=== PATIENT | female | born 1960 | race Hispanic/Latino ===

== ENCOUNTER 2017-09-14 13:25 | Inpatient (IN) | payer MEDICAID ==
--- NOTE | 2017-09-14 14:24 | ED PDOC ---
Arrival/HPI - General Chief Complaint: Weakness/Neurological Deficit Time Seen by Provider: 09/14/17 14:11 Historian: Patient - History of Present Illness Narrative History of Present Illness (Text): 09/14/17 14:24 A 57 year old female presents to the emergency department complaining of sudden onset of generalized weakness since yesterday. Patient notes associated nausea, headache and malaise/easily fatigued; poor appetite. Of note patient reports left great toe swelling and progressively worsening pain today/this morning. Patient has a history of diabetic ulcers to same region and became concerned causing her to come to the emergency room for further evaluation. pt noted sudden left great toe redness/swelling and streaking of redness up to her left foot/ankle; movement/walking causes severe left foot/toe pain; Patient denies any recent trauma/fall/travel, sick contact, subjective fevers, chills, sweats, vomiting, abdominal pain, urinary/bladder changes, chest pain, shortness of breath or any other complaints. pt denied LOC pt is here for further eval PCP: Sol ledezma Time/Duration: < week (1-2 days) Symptom Onset: Sudden Symptom Course: Worsening Activities at Onset: Rest Context: Home Past Medical History - Provider Review Nursing Documentation Reviewed: Yes - Travel History Have you recently traveled outside [place] w/in the past 3 mons?: No - Past History Past History: Non-Contributing - Infectious Disease Hx of Infectious Diseases: None - Tetanus Immunization Tetanus Immunization: Unknown - Reproductive Menopause: Yes Currently : No - Cardiac Hx Cardiac Disorders: No Hx Angina: No Hx Cardiac Arrhythmia: No Hx Circulatory Problems: No Hx Congestive Heart Failure: No Hx Heart Murmur: No Hx Heart Transplant: No Hx Hypertension: No Hx Internal Defibrillator: No Hx Mitral Valve Prolapse: No Hx Pacemaker: No Hx Peripheral Edema: No Hx Peripheral Vascular Disease: No - Pulmonary Hx Respiratory Disorders: No Hx Asthma: No Hx Bronchitis: No Hx Chronic Obstructive Pulmonary Disease (COPD): No Hx Emphysema: No Hx Pneumonia: No Hx Respiratory Aspiration: No Hx Respiratory Tract Infection: No Hx Sleep Apnea: No Hx Tuberculosis: No - Neurological Hx Neurological Disorder: No Hx Alzheimer's Disease: No HX Cerebrovascular Accident: No Hx Dementia: No Hx Dizziness: No Hx Meningitis: No Hx Migraine: No Hx Parkinson's Disease: No Hx Seizures: No Hx Transient Ischemic Attacks (TIA): No - HEENT Hx HEENT Disorder: No Hx Blind: No Hx Cataracts: No Hx Deafness: No Hx Difficulty Chewing: No Hx Epistaxis: No Hx Glaucoma: No Hx Macular Degeneration: No - Renal Hx Renal Disorder: No Hx Dialysis: No Hx Kidney Stones: No Hx Neurogenic Bladder: No Hx Pyelonephritis: No Hx Renal Cancer: No Hx Renal Failure: No - Endocrine/Metabolic Hx Endocrine Disorders: Yes Hx Adrenal Cancer: No Hx Diabetes Insipidus: No Hx Diabetes Mellitus Type 1: Yes Hx Diabetes Mellitus Type 2: No Hx Hyperthyroidism: No Hx Hypothyroidism: No Hx Systemic Lupus Erythematosus: No - Hematological/Oncological Hx Blood Disorders: No Hx AIDS: No Hx Anemia: No Hx Cancer: No Hx Chemotherapy: No Hx Cirrhosis: No Hx Hemophilia: No Hx Hepatitis A: No Hx Hepatitis B: No Hx Hepatitis C: No Hx Metastasis: No Hx Shingles: No Hx Sickle Cell Disease: No Hx Unexplained Bleeding: No - Integumentary Hx Dermatological Disorder: No Hx Basal Cell Carcinoma: No Hx Eczema: No Hx Melanoma: No Hx Psoriasis: No Hx Squamous Cell Carcinoma: No - Musculoskeletal/Rheumatological Hx Musculoskeletal Disorders: No Hx Arthritis: No Hx Back Pain: No Hx Degenerative Joint Disease: No Hx Falls: No Hx Fractures: No Hx Gout: No Hx Herniated Disk: No Hx Myasthenia Gravis: No Hx Osteoarthritis: No Hx Osteomyelitis: No Hx Osteoporosis: No Hx Rhabdomyolysis: No Hx Spinal Stenosis: No Hx Unsteady Gait: No - Gastrointestinal Hx Gastrointestinal Disorders: No Hx Colostomy: No Hx Crohn's Disease: No Hx Diverticulitis: No Hx Gall Bladder Disease: No Hx Gastroesophageal Reflux: No Hx Gastrointestinal Ulcer: No Hx Ileostomy: No Hx Liver Failure: No Hx Pancreatitis: No HX Swallowing Problems: No - Genitourinary/Gynecological Hx Genitourinary Disorders: No Hx Hematuria: No Hx Incontinence: No Hx Prostate Problems: No Hx Sexually Transmitted Diseases: No Hx Urinary Tract Infection: No - Psychiatric Hx Psychophysiologic Disorder: No Hx Anxiety: No Hx Bipolar Disorder: No Hx Depression: No Hx Emotional Abuse: No Hx Hallucinations: No Hx Panic Disorder: No Hx Paranoia: No Hx Post Traumatic Stress Disorder: No Hx Psychosis: No Hx Physical Abuse: No Hx Schizophrenia: No Hx Sexual Abuse: No Hx Substance Use: No - Surgical History Hx Amputation: No Hx Appendectomy: No Hx Cardiac Catheterization: No Hx Cholecystectomy: No Hx Coronary Stent: No Hx Gastric Bypass Surgery: No Hx Hysterectomy: No Hx Inguinal Hernia Repair: No Hx Joint Replacement: No Hx Kidney Transplant: No Hx Liver Transplant: No Hx Mastectomy: No Hx Musculoskeletal Surgery: No Hx Open Heart Surgery: No Hx Orthopedic Surgery: No Hx Splenectomy: No Hx Valve Replacement: No - Suicidal Assessment Feels Threatened In Home Enviroment: No Family/Social History - Physician Review Nursing Documentation Reviewed: Yes Family/Social History: No Known Family HX Smoking Status: Current Some Days Smoker Hx Alcohol Use: No Hx Substance Use: No Hx Substance Use Treatment: No Allergies/Home Meds Allergies/Adverse Reactions: Allergies No Known Allergies Allergy (Verified 12/04/13 20:47) Review of Systems - Physician Review All systems were reviewed & negative as marked: Yes - Review of Systems Constitutional: Fatigue, Other (Generalized weakness, Malaise). absent: Fevers , Night Sweats Eyes: Normal ENT: Normal Respiratory: absent: SOB Cardiovascular: absent: Chest Pain Gastrointestinal: Nausea. absent: Abdominal Pain, Vomiting Genitourinary Female: absent: Urine Output Changes Musculoskeletal: Other (Left great toe swelling and pain) Skin: Cellulitis Neurological: Headache, Dizziness Endocrine: Normal Hemo/Lymphatic: Normal Psychiatric: Normal Physical Exam - Physical Exam Narrative Physical Exam (Text): 09/14/17 14:25 General: alert/awake, GCS = 15, oriented x 3, resting in bed, uncomfortable, cooperative, interactive; NAD Head: NC/AT EYE: PERRLA, EOMI, sclera anicteric, no nystagmus, no photophobia; visual field intact b/l Facial: WNL Oral: uvula/tongue are midline, no exudate/lesions, no drooling/stridor, no dysphonia; intact dentitions; mild dry oral mucosa NECK: intact ROM, no midline tenderness, no nuchal rigidity, no meningeal signs ; no step off Chest: CTA b/l, no w/r/r; no tachypenia, no accessory muscle use noted Cardiac: +S1, +S2, no m/r/r, no tachycardia Abdominal: +BS, soft/nd/nt, well nourished patient; no masses/rebound/guarding/ rigidity; no montoya's sign, no mcburney's point tenderness Extremities: intact ROM, strength 5/5 grossly intact in all limbs, neurovasc intact b/l; + ambulatory; reflex +2/2; no pitting edema noted b/l; no Daron's sign b/l; left great toe swelling/pain are noted on exam with swelling/redness spreading proximally to her left inner ankle region; + concern of left great toe (plantar region) fluctuance/toe tenderness noted on exam; no expressible discharge/bleeding are noted on exam; no gross deformities noted; no open sores/ lesions noted BACK: no step off, no midline tenderness, NO crepitus, no gross deformities noted; Intact ROM SKIN: cap refill < 1 sec, no ulcerations, no petechiae, no rashes; as described above extremities section; NO NIKOSKY's sign noted NEURO: CNII-XII WNL, no facial asymmetries, no slurr speech, oriented x 3 NIH stroke scale ~ 0 Psych: normal insight, normal affect; follows command with ease Vital Signs Reviewed: Yes Vital Signs Temp Pulse Resp BP Pulse Ox 09/14/17 15:45 75 18 139/84 98 09/14/17 14:08 98.4 F 81 18 160/90 H 98 Temperature: Afebrile Blood Pressure: Hypertensive Pulse: Regular Respiratory Rate: Normal Appearance: Positive for: Well-Appearing, Non-Toxic, Uncomfortable. No: Ill- Appearing, Unkept Pain Distress: None Mental Status: Positive for: Alert and Oriented X 3 Finger Stick Blood Glucose: 195 - Systems Exam Head: Present: Atraumatic, Normocephalic Medical Decision Making ED Course and Treatment: 09/14/17 14:24 Impression: A 57 year old female with sudden generalized weakness, malaise, nausea and headache. Patient also reports left great toe swelling and pain. left foot cellulitis with left great toe abscess r/o osteo/FB Plan: -- Left foot xray -- EKG -- Labs -- Blood culture -- Urinalysis -- IV fluids, Boostrix, Vancomycin and Zosyn -- Reassess and disposition Progress Notes: pt is resting comfortably in bed pt is awaiting diagnostic/lab results 09/14/17 15:24 Case discussed with podiatry resident supervisor liquefaction, who is agreeable with emergency department management/txt plan and will evaluate patient in the morning. 1600 given pt's complaints and lab results and diagnostic finds, will recommend patient for admission/wound care/IV abx pt is made aware of her medical results agrees with admission 1620 I spoke to Hospitalists supervisor liquefaction, made aware, agrees with admission Re-evaluation Time: 16:30 Reassessment Condition: Improving,but remains with symptoms - Lab Interpretations Lab Results: 09/14/17 14:45 09/14/17 14:45 Lab Results 09/14/17 15:15: pO2 19 L, VBG pH 7.37, VBG pCO2 52.0, VBG HCO3 30.1 H, VBG Total CO2 31.7 H, VBG O2 Sat (Calc) 33.1 L, VBG Base Excess 3.6 H, VBG Potassium 4.0, Glucose 214 H, Lactate 1.2, FiO2 21.0, Sodium 136.0, Chloride 101.0, Venous Blood Potassium 4.0 09/14/17 14:45: Serum Osmolality 286, C-React Prot High Sens Pending 09/14/17 14:45: Sodium 139, Potassium 3.8, Chloride 99, Carbon Dioxide 27, Anion Gap 17, BUN 10, Creatinine 0.8, Est GFR ( Amer) > 60, Est GFR (Non- Af Amer) > 60, Random Glucose 199 H, Calcium 10.0, Phosphorus 3.6, Magnesium 1.5 L, Total Bilirubin 0.8, AST 25, ALT 30, Alkaline Phosphatase 103, Troponin I < 0.01, Total Protein 8.2, Albumin 4.6, Globulin 3.5, Albumin/Globulin Ratio 1.3 09/14/17 14:45: PT 12.0, INR 1.05, APTT 27.8 09/14/17 14:45: WBC 13.5 H D, RBC 4.70, Hgb 14.3, Hct 41.2, MCV 87.7, MCH 30.4, MCHC 34.7, RDW 12.5, Plt Count 335, MPV 9.5, Gran % 86.3 H, Lymph % (Auto) 7.7 L , [place] % (Auto) 5.8, Eos % (Auto) 0.1 L, Baso % (Auto) 0.1, Gran # 11.60 H, Lymph # (Auto) 1.0 L, [place] # (Auto) 0.8 H, Eos # (Auto) 0.0, Baso # (Auto) 0.02 , ESR Pending I have reviewed the lab results: Yes Interpretation: Abnormal lab values (elevated WBCs/gluc) - RAD Interpretation Narrative RAD Interpretations (Text): 09/14/17 16:19 PROCEDURE: Left Foot Radiographs. HISTORY: left great toe infection COMPARISON: None. FINDINGS: BONES: No radiographic manifestations of osteomyelitis. JOINTS: Minor hallux valgus deformity. SOFT TISSUES: Deep soft tissue ulcer plantar aspect of the 1st digit. OTHER FINDINGS: None. IMPRESSION: Soft tissue swelling, ulcer 1st digit. No radiographic manifestations of acute osteomyelitis. Radiology Orders: 09/14/17 14:33 FOOT LEFT 3 VIEWS ROUTINE [RAD] Stat Credit Historian: Radiologist - EKG Interpretation EKG Interpretation (Text): 09/14/17 16:19 NSR at 90 bpm, normal axis, no ectopy, + poor baseline, inverted T in leads V2-3 , qs in leads V1-2, non-specific st changes, ABNL EKG; no old ekg to compare with Interpreted by ED Physician: Yes Type: 12 lead EKG Comparison: No previous EKG avail. - Medication Orders Current Medication Orders: Discontinued Medications Sodium Chloride (Sodium Chloride 0.9%) 500 mls @ 999 mls/hr IV .Q31M STA Stop: 09/14/17 15:03 Last Admin: 09/14/17 15:26 Dose: 999 mls/hr eMAR Start Stop Document 09/14/17 15:26 JOSEA (Rec: 09/14/17 15:27 [facility] [id number]) Intravenous Solution Start Date 09/14/17 Start Time 15:26 End Date 09/14/17 End time 16:00 Total Infusion Time 34 Vancomycin HCl (Vancomycin 1gm) 1 gm in 250 mls @ 167 mls/hr IVPB STAT STA PRN Reason: Protocol Stop: 09/14/17 16:00 Last Admin: 09/14/17 16:00 Dose: 167 mls/hr eMAR Start Stop Document 09/14/17 16:00 SZA (Rec: 09/14/17 16:20 [facility] [id number]) Intravenous Solution Start Date 09/14/17 Start Time 16:00 End Date 09/14/17 End time 17:30 Total Infusion Time 90 Piperacillin Sod/Tazobactam Sod (Zosyn 4.5 Gm In Ns 100ml) 4.5 gm in 100 mls @ 200 mls/hr IVPB STAT STA PRN Reason: Protocol Stop: 09/14/17 15:00 Last Admin: 09/14/17 15:24 Dose: 200 mls/hr eMAR Start Stop Document 09/14/17 15:24 SZA (Rec: 09/14/17 15:24 SZA [id number]) Intravenous Solution Start Date 09/14/17 Start Time 15:24 End Date 09/14/17 End time 16:00 Total Infusion Time 36 Tetanus/Reduced Diphtheria/Acell Pertussis (Boostrix Vaccine Inj) 0.5 ml IM .ONCE ONE Stop: 09/14/17 14:33 Last Admin: 09/14/17 15:24 Dose: 0.5 ml Immunization Registry Document 09/14/17 15:24 SZA (Rec: 09/14/17 15:24 SZA [id number]) Immunization Registry Consent Date 09/14/17 - Scribe Statement The provider has reviewed the documentation as recorded by the Linda Rangel Provider Scribe Attestation: All medical record entries made by the Scribe were at my direction and personally dictated by me. I have reviewed the chart and agree that the record accurately reflects my personal performance of the history, physical exam, medical decision making, and the department course for this patient. I have also personally directed, reviewed, and agree with the discharge instructions and disposition. Disposition/Present on Arrival - Present on Arrival Any Indicators Present on Arrival: No History of DVT/PE: No History of Uncontrolled Diabetes: Yes Urinary Catheter: No History of Decub. Ulcer: No History Surgical Site Infection Following: None - Disposition Have Diagnosis and Disposition been Completed?: Yes Diagnosis: Cellulitis of foot, left, Toe abscess, Uncontrolled diabetes mellitus Disposition: HOSPITALIZED Disposition Time: 16:15 Patient Plan: Admission Patient Problems: Current Active Problems Problem Status Onset Cellulitis of foot, left Acute Toe abscess Acute Uncontrolled diabetes mellitus Acute Condition: STABLE Print Language: SAMI Forms: MADS (Telugu)
[2017-09-14 14:31] VITALS: BMI 25.0
[2017-09-14] MEDS ORDERED: Piperacill/Tazo 4.5gm in NS 4.5 GM/100 ML BAG IVPB STA (14:31)
[2017-09-14] MEDS ORDERED: Vancomycin 1gm in NS 250ml 1 GM/250 ML BAG IVPB STA (14:31)
[2017-09-14] MEDS ORDERED: TDAP Vaccine 0.5 mL Syr IM ONE (14:32)
[2017-09-14] MEDS ORDERED: Sodium Chloride 0.9% 500 ML IV STA (14:33)
[2017-09-14 15:45] LABS: VENOUS BLOOD GAS BASE EXCESS 3.6 mmol/L (0.0-2.0); VENOUS BLOOD GAS PO2 19 mm/Hg (30-55); VENOUS BLOOD PH 7.37 (7.32-7.43)
[2017-09-14 15:45] LABS: BASO # 0.02 K/mm3 (0.0-2.0); BASO % 0.1 % (0.0-3.0); EOS % 0.1 % (1.5-5.0); GRAN # 11.6 (1.4-6.5); GRAN % 86.3 % (50.0-68.0); HEMOGLOBIN 14.3 g/dL (12.0-16.0); LYMPH % 7.7 % (22.0-35.0); MEAN CELL VOLUME 87.7 fl (80.0-105.0); MEAN CORPUSCULAR HEMOGLOBIN 30.4 pg (25.0-35.0); MEAN CORPUSCULAR HGB CONC 34.7 g/dl (31.0-37.0); MEAN PLATELET VOLUME 9.5 fl (7.0-11.0); MONO # 0.8 (0.1-0.6); MONO % 5.8 % (1.0-6.0); RBC 4.7 10^6/uL (3.5-6.1); RED CELL DISTRIBUTION WIDTH 12.5 % (11.5-14.5); WHITE BLOOD COUNT 13.5 10^3/ul (4.5-11.0)
[2017-09-14 15:51] LABS: INR 1.05 (0.93-1.08); PARTIAL THROMBOPLASTIN TIME 27.8 Seconds (25.1-36.5)
[2017-09-14 16:01] LABS: ALB/GLOB RATIO 1.3 (1.1-1.8); ALBUMIN 4.6 g/dL (3.0-4.8); ALT/SGPT 30 U/L (7-56); AST/SGOT 25 U/L (14-36); BLOOD UREA NITROGEN 10 mg/dL (7-21); GFR AFRICAN-AMERICAN > 60; GFR NON-AFRICAN AMERICAN > 60
[2017-09-14 16:11] LABS: TROPONIN I < 0.01 ng/mL
--- NOTE | 2017-09-14 16:18 | RAD ---
PROCEDURE: Left Foot Radiographs. HISTORY: left great toe infection COMPARISON: None. FINDINGS: BONES: No radiographic manifestations of osteomyelitis. JOINTS: Minor hallux valgus deformity. SOFT TISSUES: Deep soft tissue ulcer plantar aspect of the 1st digit. OTHER FINDINGS: None. IMPRESSION: Soft tissue swelling, ulcer 1st digit. No radiographic manifestations of acute osteomyelitis.
[2017-09-14 16:40] LABS: OSMOLALITY,SERUM 286 mosm/kg (272-300)
[2017-09-14] MEDS ORDERED: Vancomycin 1gm in NS 250ml 1 GM/250 ML BAG IVPB SCH ×2 (17:00→17:02)
--- NOTE | 2017-09-14 17:07 | CP.PCM.HP ---
<Farideh Anders - Last Filed: 09/14/17 17:56> History of Present Illness - History of Present Illness History of Present Illness: PGY-2 H&P for Hospitalist service 57 year old female with PMH of DM presented to the emergency department complaining of toe swelling of the right great toe. Patient states that 2 days ago she noticed her toe swelling and becoming tender. Patient states that this morning she had sudden onset of generalized weakness. Patient also reports associated nausea, headache and malaise. Patient states that she has a history of diabetic ulcers to same region adn has had an ulcer there for the past 3-4 months. She has previously seen a defensive line coach for the ulcer but has not seen any one for the past few months. She states that she was not on any antibiotic recently. She noted left great toe redness,swelling with severe pain with movement left foot and toe. Patient denies any recent trauma, falls, or travel. No recent sick contact. She denies fevers, sweats, vomiting, abdominal pain, urinary symptoms, chest pain, shortness of breath or any other complaints. PMH: diabetes PSH: cholecystitis social history: smokes 15-16 cigarettes per day, social alcohol use, denies illicit drug use family history: father heart disease allergy: NKDA Present on Admission - Present on Admission Any Indicators Present on Admission: No Review of Systems - Review of Systems All systems: reviewed and no additional remarkable complaints except Past Patient History - Infectious Disease Hx of Infectious Diseases: None - Tetanus Immunizations Tetanus Immunization: Unknown - Past Social History Smoking Status: Current Some Days Smoker - CARDIAC Hx Cardiac Disorders: No Hx Angina: No Hx Cardia Arrhythmia: No Hx Circulatory Problems: No Hx Congestive Heart Failure: No Hx Heart Murmur: No Hx Heart Transplant: No Hx Hypertension: No Hx Internal Defibrillator: No Hx Mitral Valve Prolapse: No Hx Pacemaker: No Hx Peripheral Edema: No Hx Peripheral Vascular Disease: No - PULMONARY Hx Respiratory Disorders: No Hx Asthma: No Hx Bronchitis: No Hx Chronic Obstructive Pulmonary Disease (COPD): No Hx Emphysema: No Hx Pneumonia: No Hx Respiratory Aspiration: No Hx Respiratory Tract Infection: No Hx Sleep Apnea: No Hx Tuberculosis: No - NEUROLOGICAL Hx Neurological Disorder: No Hx Alzheimer's Disease: No HX Cerebrovascular Accident: No Hx Dementia: No Hx Dizziness: No Hx Meningitis: No Hx Migraine: No Hx Parkinson's Disease: No Hx Seizures: No Hx Transient Ischemic Attacks (TIA): No - HEENT Hx HEENT Problems: No Hx Blind: No Hx Cataracts: No Hx Deafness: No Hx Difficulty Chewing: No Hx Epistaxis: No Hx Glaucoma: No Hx Macular Degeneration: No - RENAL Hx Chronic Kidney Disease: No Hx Dialysis: No Hx Kidney Stones: No Hx Neurogenic Bladder: No Hx Pyelonephritis: No Hx Renal (Kidney) Cancer: No Hx Renal Failure: No - ENDOCRINE/METABOLIC Hx Endocrine Disorders: Yes Hx Adrenal Cancer: No Hx Diabetes Insipidus: No Hx Diabetes Mellitus Type 1: Yes Hx Diabetes Mellitus Type 2: No Hx Hyperthyroidism: No Hx Hypothyroidism: No Hx Systemic Lupus Erythematosus: No - HEMATOLOGICAL/ONCOLOGICAL Hx Blood Disorders: No Hx AIDS: No Hx Anemia: No Hx Cancer: No Hx Chemotherapy: No Hx Cirrhosis: No Hx Hemophilia: No Hx Hepatitis A: No Hx Hepatitis B: No Hx Hepatitis C: No Hx Metastesis: No Hx Shingles: No Hx Sickle Cell Disease: No Hx Unexplained Bleeding: No - INTEGUMENTARY Hx Dermatological Problems: No Hx Basil Cell: No Hx Eczema: No Hx Melanoma: No Hx Psoriasis: No Hx Squamous Cell: No - MUSCULOSKELETAL/RHEUMATOLOGICAL Hx Musculoskeletal Disorders: No Hx Arthritis: No Hx Back Pain: No Hx Degenerative Joint Disease: No Hx Falls: No Hx Fractures: No Hx Gout: No Hx Herniated Disk: No Hx Myasthenia Gravis: No Hx Osteoarthritis: No Hx Osteomyelitis: No Hx Osteoporosis: No Hx Rhabdomyolysis: No Hx Spinal Stenosis: No Hx Unsteady Gait: No - GASTROINTESTINAL Hx Gastrointestinal Disorders: No Hx Colostomy: No Hx Crohn's Disease: No Hx Diverticulitis: No Hx Gall Bladder Disease: No Hx Gastroesophageal Reflux: No Hx Ileostomy: No Hx Liver Failure: No Hx Pancreatitis: No HX Swallowing Problems: No - GENITOURINARY/GYNECOLOGICAL Hx Genitourinary Disorders: No Hx Hematuria: No Hx Incontinence: No Hx Sexually Transmitted Disorders: No Hx Urinary Tract Infection: No - PSYCHIATRIC Hx Psychophysiologic Disorder: No Hx Anxiety: No Hx Bipolar Disorder: No Hx Depression: No Hx Emotional Abuse: No Hx Hallucinations: No Hx Panic Symptoms: No Hx Paranoia: No Hx Post Traumatic Stress Disorder: No Hx Psychosis: No Hx Physical Abuse: No Hx Schizophrenia: No Hx Sexual Abuse: No Hx Substance Use: No - SURGICAL HISTORY Hx Amputation: No Hx Appendectomy: No Hx Cardiac Catheterization: No Hx Cholecystectomy: No Hx Coronary Stent: No Hx Gastric Bypass Surgery: No Hx Hysterectomy: No Hx Joint Replacement: No Hx Kidney Transplant: No Hx Liver Transplant: No Hx Mastectomy: No Hx Musculoskeletal Surgery: No Hx Open Heart Surgery: No Hx Orthopedic Surgery: No Hx Splenectomy: No Hx Valve Replacement: No Meds Allergies/Adverse Reactions: Allergies Allergy/AdvReac Type Severity Reaction Status Date / Time No Known Allergies Allergy Verified 12/04/13 20:47 Physical Exam - Constitutional Appears: No Acute Distress - Head Exam Head Exam: ATRAUMATIC, NORMAL INSPECTION, NORMOCEPHALIC - Eye Exam Eye Exam: EOMI, Normal appearance - ENT Exam ENT Exam: Mucous Membranes Moist - Respiratory Exam Respiratory Exam: Clear to Auscultation Bilateral, NORMAL BREATHING PATTERN. absent: Rales, Rhonchi, Wheezes, Respiratory Distress, Stridor - Cardiovascular Exam Cardiovascular Exam: REGULAR RHYTHM, +S1, +S2. absent: Bradycardia, Tachycardia , Diastolic murmur, Systolic Murmur - GI/Abdominal Exam GI & Abdominal Exam: Soft. absent: Distended, Firm, Guarding - Extremities Exam Additional comments: ulcer left first toe, erythema of surrounding area radiating up dorsal aspect of her foot, swelling, tenderness - Back Exam Back exam: NORMAL INSPECTION - Neurological Exam Neurological exam: Alert, Oriented x3 - Psychiatric Exam Psychiatric exam: Normal Affect, Normal Mood - Skin Skin Exam: Dry, Warm Results - Vital Signs Recent Vital Signs: Last Vital Signs Temp 98.4 F 09/14/17 14:08 Pulse 75 09/14/17 15:45 Resp 18 09/14/17 15:45 BP 139/84 09/14/17 15:45 Pulse Ox 98 09/14/17 15:45 - Labs Result Diagrams: 09/14/17 14:45 09/14/17 14:45 Assessment & Plan - Assessment and Plan (Free Text) Assessment: 57 year old female with PMH of DM presented to the emergency department with foot ulcer of left 1st digit. Plan: ulcer of the left great toes with possible cellulititis - most like diabetic foot ulcer - foot xray showed soft tissue swelling, ulcer 1st digit, no manifestations of acute osteomyelitis - afebrile, with mild elevation of leukocytes - received vancomycin in ED, will continue - start zosyn - podiatry consulted - ID consulted - consider MRI of foot to r/o osteomylitis - lactic acid within normal limits, 1.2 - CRP, blood culures - zofran PRN for nausea diabetes - will order Hgba1c, lipid panel - ISS- med - fingers ticks ACHS - continue home alogliptin and metformin h/o tabacco use - will start nicotine patch tomorrow per patients request - discussed smoking cessation GI ppx- pepcid DVT ppx- lovenox <Azalea Valenzuela - Last Filed: 09/15/17 13:30> Results - Vital Signs Recent Vital Signs: Last Vital Signs Temp 98.5 F 09/15/17 07:47 Pulse 85 09/15/17 07:47 Resp 20 09/15/17 07:47 BP 136/88 09/15/17 07:47 Pulse Ox 98 09/15/17 07:47 - Labs Result Diagrams: 09/15/17 06:30 09/15/17 06:30 Labs: Laboratory Results - last 24 hr 09/14/17 09/14/17 09/15/17 19:00 21:43 06:24 WBC RBC Hgb Hct MCV MCH MCHC RDW Plt Count MPV Gran % Lymph % (Auto) [place] % (Auto) Eos % (Auto) Baso % (Auto) Gran # Lymph # (Auto) [place] # (Auto) Eos # (Auto) Baso # (Auto) ESR Sodium Potassium Chloride Carbon Dioxide Anion Gap BUN Creatinine Est GFR ( Amer) Est GFR (Non-Af Amer) POC Glucose (mg/dL) 185 H 171 H Random Glucose Calcium Total Bilirubin AST ALT Alkaline Phosphatase C-Reactive Protein Total Protein Albumin Globulin Albumin/Globulin Ratio Triglycerides Cholesterol LDL Cholesterol Direct HDL Cholesterol Influenza Typ A,B (EIA) Negative for flu a/b 09/15/17 09/15/17 09/15/17 06:30 06:30 11:37 WBC 9.1 D RBC 4.40 Hgb 13.1 Hct 38.4 MCV 87.3 MCH 29.8 MCHC 34.1 RDW 12.5 Plt Count 312 MPV 9.5 Gran % 75.9 H Lymph % (Auto) 14.5 L [place] % (Auto) 8.8 H Eos % (Auto) 0.5 L Baso % (Auto) 0.3 Gran # 6.93 H Lymph # (Auto) 1.3 [place] # (Auto) 0.8 H Eos # (Auto) 0.1 Baso # (Auto) 0.03 ESR 55 H Sodium 138 Potassium 4.2 Chloride 105 Carbon Dioxide 21 Anion Gap 17 BUN 8 Creatinine 0.7 Est GFR ( Amer) > 60 Est GFR (Non-Af Amer) > 60 POC Glucose (mg/dL) 182 H Random Glucose 182 H Calcium 8.8 Total Bilirubin 0.7 AST 53 H D ALT 41 Alkaline Phosphatase 110 C-Reactive Protein 133.30 H Total Protein 7.0 Albumin 3.9 Globulin 3.0 Albumin/Globulin Ratio 1.3 Triglycerides 165 H Cholesterol 182 LDL Cholesterol Direct 90 HDL Cholesterol 45 Influenza Typ A,B (EIA) Attending/Attestation - Attestation I have personally seen and examined this patient.: Yes I have fully participated in the care of the patient.: Yes I have reviewed all pertinent clinical information: Yes Notes (Text): 09/15/17 13:28 Attending note; Patient seen and examined with resident. Patient is a 57 year old female with PMH of DM presented to the emergency department with foot ulcer of left 1st digit. Patient had nonhealing ulcer on the left big toe for the past few months. Not treated with antibiotics. Currently with significant swelling and streaking. Started on IV vancomycin and Zosyn. Diabetes; continue cough-controlled diet. Continue metformin and Alogliptin. Podiatry evaluation requested. MRI of the foot ordered. Upon discharge patient will follow-up with PMD Dr. Martin. 09/15/17 13:29
[2017-09-14] MEDS ORDERED: Magnesium 2 gm/50 ml NS 2 GM/50 ML BAG IVPB ONE (17:59)
--- NOTE | 2017-09-14 21:15 | CARD ---
APPROVED REPORT EKG Measurement Heart [id number] MD [id number] <Conclusion> Normal sinus rhythm Low voltage QRS Septal infarct, age undetermined Abnormal ECG
[2017-09-14] MEDS: Insulin Reg-MEDIUM-Coverage SC SCH (21:50)
[2017-09-14] MEDS: Piperacill/Tazo 4.5gm in NS 4.5 GM/100 ML BAG IVPB SCH (23:20)
[2017-09-15] MEDS: Piperacill/Tazo 4.5gm in NS 4.5 GM/100 ML BAG IVPB SCH ×4 (05:45→23:01)
[2017-09-15 07:45] LABS: BASO # 0.03 K/mm3 (0.0-2.0); BASO % 0.3 % (0.0-3.0); EOS # 0.1 (0.0-0.7); EOS % 0.5 % (1.5-5.0); GRAN # 6.93 (1.4-6.5); GRAN % 75.9 % (50.0-68.0); HEMOGLOBIN 13.1 g/dL (12.0-16.0); LYMPH # 1.3 (1.2-3.4); LYMPH % 14.5 % (22.0-35.0); MEAN CELL VOLUME 87.3 fl (80.0-105.0); MEAN CORPUSCULAR HEMOGLOBIN 29.8 pg (25.0-35.0); MEAN CORPUSCULAR HGB CONC 34.1 g/dl (31.0-37.0); MEAN PLATELET VOLUME 9.5 fl (7.0-11.0); MONO # 0.8 (0.1-0.6); MONO % 8.8 % (1.0-6.0); RBC 4.4 10^6/uL (3.5-6.1); RED CELL DISTRIBUTION WIDTH 12.5 % (11.5-14.5); WHITE BLOOD COUNT 9.1 10^3/ul (4.5-11.0)
[2017-09-15] MEDS: Insulin Reg-MEDIUM-Coverage SC SCH ×4 (07:52→21:27)
[2017-09-15 09:36] LABS: ALB/GLOB RATIO 1.3 (1.1-1.8); ALBUMIN 3.9 g/dL (3.0-4.8); ALT/SGPT 41 U/L (7-56); AST/SGOT 53 U/L (14-36); BLOOD UREA NITROGEN 8 mg/dL (7-21); CALCIUM 8.8 mg/dL (8.4-10.5); GFR AFRICAN-AMERICAN > 60; GFR NON-AFRICAN AMERICAN > 60; HDL CHOLESTEROL 45 mg/dL (29-60)
[2017-09-15 09:47] LABS: LDL CHOLESTEROL 90 mg/dL (0-129)
[2017-09-15] MEDS: Enoxaparin 40 mg Syringe SC SCH (09:47)
[2017-09-15] MEDS: Vancomycin 1gm in NS 250ml 1 GM/250 ML BAG IVPB SCH ×2 (09:52→21:35)
--- NOTE | 2017-09-15 10:09 | CP.PCM.PN ---
<Griselda Verdin - Last Filed: 09/15/17 09:54> Subjective - Date & Time of Evaluation Date of Evaluation: 09/15/17 Time of Evaluation: 09:54 - Subjective Subjective: Griselda Verdin, PGY1, Progress Note for Dr Valenzuela: Patient seen and examined at bedside this AM. Pt complains of pain at the left foot site. No acute events overnight. Denies fever, chills, nausea, vomiting, abdominal pain, leg swelling. Podiatry at bedside, draining left foot wound. Objective - Vital Signs/Intake and Output Vital Signs (last 24 hours): Temp Pulse Resp BP Pulse Ox 98.5 F 85 20 136/88 98 09/15/17 07:47 09/15/17 07:47 09/15/17 07:47 09/15/17 07:47 09/15/17 07:47 Intake and Output: 09/15/17 09/15/17 06:59 18:59 Intake Total 720 Balance 720 - Medications Medications: Current Medications Acetaminophen (Tylenol 325mg Tab) 650 mg PO Q6 PRN PRN Reason: Fever >100.4 F Enoxaparin Sodium (Lovenox) 40 mg SC DAILY [facility]URICIO PRN Reason: Protocol Famotidine (Pepcid) 20 mg PO DAILY [facility]ICIO Vancomycin HCl (Vancomycin 1gm) 1 gm in 250 mls @ 167 mls/hr IVPB Q12H MAURICIO PRN Reason: Protocol Piperacillin Sod/Tazobactam Sod (Zosyn 4.5 Gm In Ns 100ml) 4.5 gm in 100 mls @ 200 mls/hr IVPB Q6 MAURICIO PRN Reason: Protocol Stop: 09/22/17 00:01 Last Admin: 09/15/17 05:45 Dose: 200 mls/hr Insulin Human Regular (Humulin R Med) 0 units SC ACHS MAURICIO PRN Reason: Protocol Last Admin: 09/15/17 07:52 Dose: 1 unit Metformin HCl (Glucophage) 1,000 mg PO BID [facility] Last Admin: 09/14/17 18:09 Dose: 1,000 mg Nicotine (Nicoderm Cq) 1 patch TD DAILY [facility] Non-Formulary Medication (Alogliptin Benzoate [Alogliptin]) 25 mg PO DAILY [facility] Ondansetron HCl (Zofran Inj) 4 mg IVP Q6 PRN PRN Reason: Nausea/Vomiting - Labs Labs: 09/15/17 06:30 09/15/17 06:30 PT 12.0 SECONDS (9.4-12.5) 09/14/17 14:45 INR 1.05 (0.93-1.08) 09/14/17 14:45 APTT 27.8 Seconds (25.1-36.5) 09/14/17 14:45 - Constitutional Appears: Non-toxic, No Acute Distress - Head Exam Head Exam: ATRAUMATIC, NORMOCEPHALIC - Eye Exam Eye Exam: EOMI, PERRL. absent: Conjunctival injection, Nystagmus, Scleral icterus Pupil Exam: NORMAL ACCOMODATION, PERRL. absent: Fixed, Irregular, Miosis, Unequal - ENT Exam ENT Exam: Mucous Membranes Moist - Neck Exam Neck Exam: Full ROM - Respiratory Exam Respiratory Exam: Clear to Ausculation Bilateral, NORMAL BREATHING PATTERN. absent: Accessory Muscle Use, Rales, Rhonchi, Wheezes, Respiratory Distress, Stridor - Cardiovascular Exam Cardiovascular Exam: +S1, +S2. absent: Murmur - GI/Abdominal Exam GI & Abdominal Exam: Soft, Normal Bowel Sounds. absent: Distended, Firm, Guarding, Rigid, Tenderness, Mass, Organomegaly, Rebound - Extremities Exam Additional comments: + left big toe greenish in color, with surrounding erythema, mild tenderness. - Back Exam Back Exam: NORMAL INSPECTION - Neurological Exam Neurological Exam: Alert, Awake, Oriented x3 - Psychiatric Exam Psychiatric exam: Normal Affect, Normal Mood - Skin Skin Exam: Dry, Normal Color, Warm Assessment and Plan - Assessment and Plan (Free Text) Assessment: 57 year old female with PMH DM, presents for foot ulcer of left 1st digit: Ulcer of the left great toe with possible cellulitis: - most likely diabetic foot ulcer - foot xray showed soft tissue swelling, ulcer 1st digit, no manifestations of acute osteomyelitis - foot MRI pending - afebrile, with mild elevation of leukocytes in ED. - leukocytosis resolved today - received vancomycin in ED, will continue - Continue vancomycin and zosyn - podiatry consulted. appreciate recs - ID consulted. F/u recs. - CRP and ESR elevated, F/u blood cultures and wound culture - zofran PRN for nausea Hx of DM: - f/u Hgba1c - ISS- med - fingers ticks ACHS - continue home alogliptin and metformin Hx of tabacco use: - advised smoking cessation - nicotine patch GI ppx- pepcid DVT ppx- lovenox Case seen and discussed with Dr Valenzuela. Griselda Verdin, PGY1 <Azalea Valenzuela - Last Filed: 09/15/17 13:32> Objective - Vital Signs/Intake and Output Vital Signs (last 24 hours): Temp Pulse Resp BP Pulse Ox 98.5 F 85 20 136/88 98 09/15/17 07:47 09/15/17 07:47 09/15/17 07:47 09/15/17 07:47 09/15/17 07:47 Intake and Output: 09/15/17 09/15/17 06:59 18:59 Intake Total 720 Balance 720 - Medications Medications: Current Medications Acetaminophen (Tylenol 325mg Tab) 650 mg PO Q6H PRN PRN Reason: Headache Last Admin: 09/15/17 10:07 Dose: 650 mg Cadexomer Iodine (Iodosorb) 0 gm TOP DAILY [facility] Last Admin: 09/15/17 11:00 Dose: 10 gm Enoxaparin Sodium (Lovenox) 40 mg SC DAILY [facility] PRN Reason: Protocol Last Admin: 09/15/17 09:47 Dose: 40 mg Famotidine (Pepcid) 20 mg PO DAILY [facility] Last Admin: 09/15/17 09:48 Dose: 20 mg Vancomycin HCl (Vancomycin 1gm) 1 gm in 250 mls @ 167 mls/hr IVPB Q12H [facility] PRN Reason: Protocol Last Admin: 09/15/17 09:52 Dose: 167 mls/hr Piperacillin Sod/Tazobactam Sod (Zosyn 4.5 Gm In Ns 100ml) 4.5 gm in 100 mls @ 200 mls/hr IVPB Q6 [facility]ICIO PRN Reason: Protocol Stop: 09/22/17 00:01 Last Admin: 09/15/17 12:32 Dose: 200 mls/hr Ibuprofen (Motrin Tab) 400 mg PO Q6H PRN PRN Reason: Pain, moderate (4-7) Insulin Human Regular (Humulin R Med) 0 units SC ACHS [facility]ICIO PRN Reason: Protocol Last Admin: 09/15/17 12:30 Dose: 1 unit Metformin HCl (Glucophage) 1,000 mg PO BID [facility] Last Admin: 09/15/17 09:48 Dose: 1,000 mg Nicotine (Nicoderm Cq) 1 patch TD DAILY [facility] Last Admin: 09/15/17 09:48 Dose: 1 patch Non-Formulary Medication (Alogliptin Benzoate [Alogliptin]) 25 mg PO DAILY [facility] Last Admin: 09/15/17 12:16 Dose: Not Given Ondansetron HCl (Zofran Inj) 4 mg IVP Q6 PRN PRN Reason: Nausea/Vomiting - Labs Labs: 09/15/17 06:30 09/15/17 06:30 PT 12.0 SECONDS (9.4-12.5) 09/14/17 14:45 INR 1.05 (0.93-1.08) 09/14/17 14:45 APTT 27.8 Seconds (25.1-36.5) 09/14/17 14:45 Attending/Attestation - Attestation I have personally seen and examined this patient.: Yes I have fully participated in the care of the patient.: Yes I have reviewed all pertinent clinical information, including history, physical exam and plan: Yes Notes (Text): 09/15/17 13:30 Attending note; Patient seen and examined with resident. Patient is a 57 year old female with PMH of DM presented to the emergency department with foot ulcer of left 1st digit. Diabetic foot ulcer left big toe. Status post I and D by the bedside by Dr. Gómez. Culture sent. Continue IV vancomycin and Zosyn. ID evaluation requested. Diabetes; continue cough-controlled diet. Hemoglobin A1c ordered. Continue metformin and Alogliptin. MRI of the foot done. Results pending. Upon discharge patient will follow-up with PMD Dr. Martin. 09/15/17 13:32
[2017-09-15] MEDS: CADEXOMER IODINE 0.9% GEL 10G TOP SCH (11:00)
[2017-09-15] MEDS: Non Formulary Medication (Alogliptin Benzoate [Alogliptin] 25 MG) PO SCH (12:16)
--- NOTE | 2017-09-15 16:40 | CON ---
DATE: 09/15/2017 HISTORY OF PRESENT ILLNESS: A 57-year-old diabetic female, seen at bedside with Dr. Valenzuela for consultation, evaluation and management of a recent left hallux blister formation. The patient stated she noticed that she developed a blister approximately 3 days ago, which was followed by fever, chills, nausea and headaches. She presented to the emergency room. She states that she has had painful calluses developed on that toe for the past several years, which has been frequently debrided by her service desk agent; however, she states she has not been to the service desk agent recently and feels that she got an infection from not doing so. PAST MEDICAL HISTORY: The patient's medical history is significant for type 1 diabetes with peripheral neuropathy. She does not check her blood sugars on a regular basis. PAST SURGICAL HISTORY: Includes cholecystectomy. SOCIAL HISTORY: The patient is a current smoker, smoking approximately one pack a day x40 years. Denies illicit drug use. Denies alcohol abuse. FAMILY HISTORY: Significant for cardiac disease. ALLERGIES: THE PATIENT HAS NO KNOWN DRUG ALLERGIES. VITAL SIGNS: The patient's vital signs revealed temperature of 98.5, pulse rate of 85, blood pressure of 136/88, respiratory rate of 20. LABORATORY DATA: Laboratory findings reveal a white count of 9.1, down from 13.5 yesterday; hemoglobin of 13.1; hematocrit of 38.4; platelet count of 312. Her ESR is slightly decreased from 60 yesterday to 55 today. There is no microbiology report noted. X-rays taken revealed no radiographic evidence of cortical destruction to suggest osteomyelitis at the underlying left great toe blister formation. MRI taken today, results pending. OBJECTIVE: Weakly palpable pedal pulses noted bilaterally. The patient is unable to detect 5.07 g monofilament wire testing bilaterally. Capillary filling time is within normal limits x9, delayed on the left great toe secondary to venous congestion. There are no interdigital macerations noted. Absent pedal hair growth noted. Lower extremity skin presents thin, shiny discolored bilaterally. There is a fluid-filled bulla on the plantar aspect of the left hallux that encompasses the entire plantar aspect of the digit. There is noted to be a hyperkeratotic lesion centrally located within the blister formation and underlying purulence is eminent; however, there are no openly active drainage occurring at this time. The entire hallux is erythematous and edematous. However, this is localized and there are no signs of ascending cellulitis at this time. However, there was noted to be more proximal cellulitis yesterday, which has receded considerably as per Dr. Valenzuela. ASSESSMENT: Diabetic left hallux blister formation with underlying abscess formation secondary to neglected hyperkeratotic lesion. PLAN: The patient was examined. Area was cleansed with Betadine solution and a simple incision and drainage was performed at bedside and upon incision, there was noted to be foul smelling seropurulent drainage emanating from the wound suspicious for necrotizing fasciitis. Necrotic and nonviable tissue was excisionally debrided and it was noted that the wound does not probe to bone and remains relatively superficial; however, it is quite severe; however, it does encompass the entire plantar aspect of the hallux. The wound was flushed with copious amounts of normal sterile saline and a culture was taken for sensitivities. The wound was dressed with Betadine solution and a dry sterile dressing. We will apply Iodosorb cream for the next day or so in an effort to decrease bacterial load. We will await MRI results and depending on how wound progresses, the patient may need to be brought into the OR for further excisional debridement. We will order a forefoot offloading shoe to offload the area. Recommend Infectious Disease consult, Dr. Moss for proper culture and sensitivity evaluation and recommend Vascular consult with Dr. Lonnie Garcia. We will order arterial Dopplers today to ascertain lower extremity perfusion. The patient will be seen and followed daily. Rajat Gómez DPM
--- NOTE | 2017-09-15 19:31 | CON ---
DATE: 09/15/2017 LOCATION: The patient is seen in 5, bed 2. CHIEF COMPLAINT: Left big toe infection times several days. HISTORY OF PRESENT ILLNESS: This is a 57-year-old female with past medical history of diabetes mellitus and whose diabetes is well controlled, who states that she developed an acute onset of a left foot big toe infection. It started as a small ulcer and it was fine; however, over the last few days, it became erythematous. She has low-grade fevers, occasional chills. No nausea. No vomiting. No chest pain. No abdominal pain, diarrhea or constipation. No dysuria or frequency. No bright red blood per rectum. REVIEW OF SYSTEMS: A 12-point review of systems was performed. PAST MEDICAL HISTORY: Significant only for diabetes mellitus and history of a right foot infection years ago. PAST SURGICAL HISTORY: Significant for cholecystectomy. ALLERGIES: THE PATIENT HAS NO KNOWN ALLERGIES. MEDICATIONS AT HOME: Include Glucophage and alogliptin. PHYSICAL EXAMINATION: GENERAL: On exam, the patient is in bed, answering questions appropriately. VITAL SIGNS: Temperature is 99.3, heart rate was up to 96, respiratory rate of 18, blood pressure is 150/70. The patient is saturating at 98%. HEENT: Examination of HEENT is unremarkable. NECK: Supple. LUNGS: Decreased breath sounds. HEART: Normal S1 and S2. ABDOMEN: Soft and nontender. EXTREMITIES: Examination of the foot reveals left big toe with necrotic area in the middle with significant erythema of the big toe that is extending onto the foot. Pulses are intact. LABORATORY DATA: Laboratory examination reveals a white count of 13,500, hemoglobin of 14, platelets of 335. The patient's sed rate is 60. Coagulation is noted. Chemistries reveal the patient's creatinine is 0.8. Random glucose is 199. C-reactive protein is elevated at greater than 15. Serology reveals the influenza is negative. I am not quite sure why an influenza test was done. MRI of the foot has been ordered and done, the results are not available. At this time, the history and physical examination by is reviewed. The patient also had an x-ray of the foot. No evidence of osteomyelitis on the x-ray. ASSESSMENT AND PLAN: This is a 57-year-old female with diabetes mellitus, tachycardia, leukocytosis and infected foot. Sepsis with a left big toe cellulitis and necrosis. Must rule out underlying peripheral vascular disease and underlying osteomyelitis. Waiting for MRI, waiting for arterial studies of the foot regarding arterial supply. We will treat the patient with vancomycin and Zosyn at this time. Podiatric care, Vascular consultation will make further recommendations pending culture results and initial workup results. Because of her age, she should also had a human immunodeficiency virus test and we also we will do a hemoglobin A1c. Jesus Moss MD
[2017-09-16] MEDS: Piperacill/Tazo 4.5gm in NS 4.5 GM/100 ML BAG IVPB SCH ×4 (05:21→23:25)
[2017-09-16 07:20] LABS: BASO # 0.05 K/mm3 (0.0-2.0); BASO % 1.1 % (0.0-3.0); EOS # 0.1 (0.0-0.7); EOS % 2.8 % (1.5-5.0); GRAN # 2.28 (1.4-6.5); GRAN % 49.1 % (50.0-68.0); HEMOGLOBIN 12.3 g/dL (12.0-16.0); LYMPH # 1.5 (1.2-3.4); LYMPH % 33.2 % (22.0-35.0); MEAN CELL VOLUME 87.8 fl (80.0-105.0); MEAN CORPUSCULAR HEMOGLOBIN 29.5 pg (25.0-35.0); MEAN CORPUSCULAR HGB CONC 33.6 g/dl (31.0-37.0); MEAN PLATELET VOLUME 9.6 fl (7.0-11.0); MONO # 0.6 (0.1-0.6); MONO % 13.8 % (1.0-6.0); RBC 4.17 10^6/uL (3.5-6.1); RED CELL DISTRIBUTION WIDTH 12.4 % (11.5-14.5); WHITE BLOOD COUNT 4.6 10^3/ul (4.5-11.0)
[2017-09-16 07:38] LABS: ALB/GLOB RATIO 1.3 (1.1-1.8); ALBUMIN 3.7 g/dL (3.0-4.8); ALT/SGPT 52 U/L (7-56); AST/SGOT 40 U/L (14-36); BLOOD UREA NITROGEN 9 mg/dL (7-21); CALCIUM 8.7 mg/dL (8.4-10.5); GFR AFRICAN-AMERICAN > 60; GFR NON-AFRICAN AMERICAN > 60
[2017-09-16] MEDS: Insulin Reg-MEDIUM-Coverage SC SCH ×4 (08:04→21:31)
[2017-09-16] MEDS: Non Formulary Medication (Alogliptin Benzoate [Alogliptin] 25 MG) PO SCH (10:16)
--- NOTE | 2017-09-16 10:16 | CP.PCM.PN ---
<Griselda Verdin - Last Filed: 09/16/17 10:08> Subjective - Date & Time of Evaluation Date of Evaluation: 09/16/17 Time of Evaluation: 10:08 - Subjective Subjective: Griselda Verdin, PGY1, Progress Note for Dr Valenzuela: Patient seen and examined at bedside. No acute events overnight. Reports that her left foot pain is better, states that her overlying "infection" is improving. Denies fevers, chills, drainage, nausea, vomiting, abdominal pain, leg swelling. Objective - Vital Signs/Intake and Output Vital Signs (last 24 hours): Temp Pulse Resp BP Pulse Ox 98.3 F 68 20 154/80 H 99 09/16/17 07:42 09/16/17 07:42 09/16/17 07:42 09/16/17 07:42 09/16/17 07:42 Intake and Output: 09/16/17 09/16/17 06:59 18:59 Intake Total 120 Balance 120 - Medications Medications: Current Medications Acetaminophen (Tylenol 325mg Tab) 650 mg PO Q6H PRN PRN Reason: Headache Last Admin: 09/15/17 10:07 Dose: 650 mg Cadexomer Iodine (Iodosorb) 0 gm TOP DAILY [facility] Last Admin: 09/15/17 11:00 Dose: 10 gm Enoxaparin Sodium (Lovenox) 40 mg SC DAILY [facility] PRN Reason: Protocol Last Admin: 09/15/17 09:47 Dose: 40 mg Famotidine (Pepcid) 20 mg PO DAILY [facility] Last Admin: 09/15/17 09:48 Dose: 20 mg Vancomycin HCl (Vancomycin 1gm) 1 gm in 250 mls @ 167 mls/hr IVPB Q12H [facility] PRN Reason: Protocol Last Admin: 09/15/17 21:35 Dose: 167 mls/hr Piperacillin Sod/Tazobactam Sod (Zosyn 4.5 Gm In Ns 100ml) 4.5 gm in 100 mls @ 200 mls/hr IVPB Q6 [facility] PRN Reason: Protocol Stop: 09/22/17 00:01 Last Admin: 09/16/17 05:21 Dose: 200 mls/hr Ibuprofen (Motrin Tab) 400 mg PO Q6H PRN PRN Reason: Pain, moderate (4-7) Last Admin: 09/16/17 08:04 Dose: 400 mg Insulin Human Regular (Humulin R Med) 0 units SC ACHS [facility] PRN Reason: Protocol Last Admin: 09/16/17 08:04 Dose: 3 unit Metformin HCl (Glucophage) 1,000 mg PO BID [facility] Last Admin: 09/15/17 18:09 Dose: 1,000 mg Nicotine (Nicoderm Cq) 1 patch TD DAILY [facility] Last Admin: 09/15/17 09:48 Dose: 1 patch Non-Formulary Medication (Alogliptin Benzoate [Alogliptin]) 25 mg PO DAILY [facility] Last Admin: 09/15/17 12:16 Dose: Not Given Ondansetron HCl (Zofran Inj) 4 mg IVP Q6 PRN PRN Reason: Nausea/Vomiting - Labs Labs: 09/16/17 06:45 09/16/17 06:45 PT 12.0 SECONDS (9.4-12.5) 09/14/17 14:45 INR 1.05 (0.93-1.08) 09/14/17 14:45 APTT 27.8 Seconds (25.1-36.5) 09/14/17 14:45 - Additional Findings Additional findings: - Constitutional Appears: Non-toxic, No Acute Distress - Head Exam Head Exam: ATRAUMATIC, NORMOCEPHALIC - Eye Exam Eye Exam: EOMI, PERRL. absent: Conjunctival injection, Nystagmus, Scleral icterus Pupil Exam: NORMAL ACCOMODATION, PERRL. absent: Fixed, Irregular, Miosis, Unequal - ENT Exam ENT Exam: Mucous Membranes Moist - Neck Exam Neck Exam: Full ROM - Respiratory Exam Respiratory Exam: Clear to Ausculation Bilateral, NORMAL BREATHING PATTERN. absent: Accessory Muscle Use, Rales, Rhonchi, Wheezes, Respiratory Distress, Stridor - Cardiovascular Exam Cardiovascular Exam: +S1, +S2. absent: Murmur - GI/Abdominal Exam GI & Abdominal Exam: Soft, Normal Bowel Sounds. absent: Distended, Firm, Guarding, Rigid, Tenderness, Mass, Organomegaly, Rebound - Extremities Exam Additional comments: + left foot covered in dressing, clean, dry, intact. No odor noted. - Back Exam Back Exam: NORMAL INSPECTION - Neurological Exam Neurological Exam: Alert, Awake, Oriented x3 - Psychiatric Exam Psychiatric exam: Normal Affect, Normal Mood - Skin Skin Exam: Dry, Normal Color, Warm Assessment and Plan - Assessment and Plan (Free Text) Assessment: 57 year old female with PMH DM, presents for left foot 1st digit abscess, s/p I& D, POD1: Left foot 1st digit abscess, s/p I&D: - foot xray showed soft tissue swelling, ulcer 1st digit, no manifestations of acute osteomyelitis - foot MRI prelim read states no osteomyelitis. Pending official read. - afebrile, with mild elevation of leukocytes in ED. - leukocytosis resolved - received vancomycin in ED, will continue - Continue vancomycin and zosyn - podiatry consulted. appreciate recs - ID consulted. Appreciate recs. - CRP and ESR elevated - HIV NR - HgbA1C 8.3 (prev 12.8 in 2013). - Blood cultures 2/2 NTD. - Wound culture: gram stain negative, awaiting culture results. - zofran PRN for nausea Hx of DM: - HgbA1C 8.3 (prev 12.8 in 2013). - ISS- med - fingers ticks ACHS - continue home alogliptin and metformin Hx of tabacco use: - advised smoking cessation - nicotine patch GI ppx- pepcid DVT ppx- lovenox Case seen and discussed with Dr Valenzuela. Griselda Verdin, PGY1 <Azalea Valenzuela - Last Filed: 09/16/17 12:30> Objective - Vital Signs/Intake and Output Vital Signs (last 24 hours): Temp Pulse Resp BP Pulse Ox 98.3 F 68 20 154/80 H 99 09/16/17 07:42 09/16/17 07:42 09/16/17 07:42 09/16/17 07:42 09/16/17 07:42 Intake and Output: 09/16/17 09/16/17 06:59 18:59 Intake Total 120 Balance 120 - Medications Medications: Current Medications Acetaminophen (Tylenol 325mg Tab) 650 mg PO Q6H PRN PRN Reason: Headache Last Admin: 09/15/17 10:07 Dose: 650 mg Cadexomer Iodine (Iodosorb) 0 gm TOP DAILY [facility] Last Admin: 09/16/17 10:17 Dose: Not Given Enoxaparin Sodium (Lovenox) 40 mg SC DAILY [facility] PRN Reason: Protocol Last Admin: 09/16/17 10:17 Dose: 40 mg Famotidine (Pepcid) 20 mg PO DAILY [facility] Last Admin: 09/16/17 10:25 Dose: 20 mg Vancomycin HCl (Vancomycin 1gm) 1 gm in 250 mls @ 167 mls/hr IVPB Q12H [facility] PRN Reason: Protocol Last Admin: 09/16/17 10:25 Dose: 167 mls/hr Piperacillin Sod/Tazobactam Sod (Zosyn 4.5 Gm In Ns 100ml) 4.5 gm in 100 mls @ 200 mls/hr IVPB Q6 [facility] PRN Reason: Protocol Stop: 09/22/17 00:01 Last Admin: 09/16/17 12:16 Dose: 200 mls/hr Ibuprofen (Motrin Tab) 400 mg PO Q6H PRN PRN Reason: Pain, moderate (4-7) Last Admin: 09/16/17 08:04 Dose: 400 mg Insulin Human Regular (Humulin R Med) 0 units SC ACHS [facility] PRN Reason: Protocol Last Admin: 09/16/17 12:15 Dose: 1 unit Metformin HCl (Glucophage) 1,000 mg PO BID [facility] Last Admin: 09/16/17 10:24 Dose: 1,000 mg Nicotine (Nicoderm Cq) 1 patch TD DAILY [facility] Last Admin: 09/16/17 10:24 Dose: 1 patch Non-Formulary Medication (Alogliptin Benzoate [Alogliptin]) 25 mg PO DAILY [facility] Last Admin: 09/16/17 10:16 Dose: Not Given Ondansetron HCl (Zofran Inj) 4 mg IVP Q6 PRN PRN Reason: Nausea/Vomiting - Labs Labs: 09/16/17 06:45 09/16/17 06:45 PT 12.0 SECONDS (9.4-12.5) 09/14/17 14:45 INR 1.05 (0.93-1.08) 09/14/17 14:45 APTT 27.8 Seconds (25.1-36.5) 09/14/17 14:45 Attending/Attestation - Attestation I have personally seen and examined this patient.: Yes I have fully participated in the care of the patient.: Yes I have reviewed all pertinent clinical information, including history, physical exam and plan: Yes Notes (Text): 09/16/17 12:29 Attending note; Patient seen and examined with resident. Patient is a 57 year old female with PMH of DM presented to the emergency department with foot ulcer of left 1st digit. Diabetic foot ulcer left big toe. Status post I and D by the bedside by Dr. Gómez. Wound culture is pending. Blood culture is negative. Continue IV vancomycin and Zosyn. ID evaluation appreciated. Diabetes; continue cough-controlled diet. Hemoglobin A1c is 8.3. Continue metformin and Alogliptin. MRI of the foot done. Results pending. Arterial Doppler ordered. Patient needs close follow-up with podiatry upon discharge. [facility]. Upon discharge patient will follow-up with PMD Dr. Martin.
[2017-09-16] MEDS: CADEXOMER IODINE 0.9% GEL 10G TOP SCH (10:17)
[2017-09-16] MEDS: Enoxaparin 40 mg Syringe SC SCH (10:17)
[2017-09-16] MEDS: Vancomycin 1gm in NS 250ml 1 GM/250 ML BAG IVPB SCH ×2 (10:25→21:29)
--- NOTE | 2017-09-16 13:16 | CP.PCM.PN ---
Subjective - Date & Time of Evaluation Date of Evaluation: 09/16/17 Time of Evaluation: 12:30 - Subjective Subjective: Podiatry Progress Note- Dr. Carter 57 yo diabetic female pt seen at bedside today for f/u L infected hallux ulceration. Pt is 1 day s/p bedside I&D with Dr. Gómez. Pt denies any pain to the foot today, however she does admit to some neuropathy. Denies f/n/v/c/sob/ cp at this time. Offers no further complaints. Objective - Vital Signs/Intake and Output Vital Signs (last 24 hours): Temp Pulse Resp BP Pulse Ox 98.3 F 68 20 154/80 H 99 09/16/17 07:42 09/16/17 07:42 09/16/17 07:42 09/16/17 07:42 09/16/17 07:42 Intake and Output: 09/16/17 09/16/17 06:59 18:59 Intake Total 120 620 Balance 120 620 - Medications Medications: Current Medications Acetaminophen (Tylenol 325mg Tab) 650 mg PO Q6H PRN PRN Reason: Headache Last Admin: 09/15/17 10:07 Dose: 650 mg Cadexomer Iodine (Iodosorb) 0 gm TOP DAILY [facility] Last Admin: 09/16/17 10:17 Dose: Not Given Enoxaparin Sodium (Lovenox) 40 mg SC DAILY [facility] PRN Reason: Protocol Last Admin: 09/16/17 10:17 Dose: 40 mg Famotidine (Pepcid) 20 mg PO DAILY [facility] Last Admin: 09/16/17 10:25 Dose: 20 mg Vancomycin HCl (Vancomycin 1gm) 1 gm in 250 mls @ 167 mls/hr IVPB Q12H [facility] PRN Reason: Protocol Last Admin: 09/16/17 10:25 Dose: 167 mls/hr Piperacillin Sod/Tazobactam Sod (Zosyn 4.5 Gm In Ns 100ml) 4.5 gm in 100 mls @ 200 mls/hr IVPB Q6 [facility] PRN Reason: Protocol Stop: 09/22/17 00:01 Last Admin: 09/16/17 12:16 Dose: 200 mls/hr Ibuprofen (Motrin Tab) 400 mg PO Q6H PRN PRN Reason: Pain, moderate (4-7) Last Admin: 09/16/17 08:04 Dose: 400 mg Insulin Human Regular (Humulin R Med) 0 units SC ACHS [facility] PRN Reason: Protocol Last Admin: 09/16/17 12:15 Dose: 1 unit Metformin HCl (Glucophage) 1,000 mg PO BID [facility] Last Admin: 09/16/17 10:24 Dose: 1,000 mg Nicotine (Nicoderm Cq) 1 patch TD DAILY [facility] Last Admin: 09/16/17 10:24 Dose: 1 patch Non-Formulary Medication (Alogliptin Benzoate [Alogliptin]) 25 mg PO DAILY [facility] Last Admin: 09/16/17 10:16 Dose: Not Given Ondansetron HCl (Zofran Inj) 4 mg IVP Q6 PRN PRN Reason: Nausea/Vomiting - Labs Labs: 09/16/17 06:45 09/16/17 06:45 PT 12.0 SECONDS (9.4-12.5) 09/14/17 14:45 INR 1.05 (0.93-1.08) 09/14/17 14:45 APTT 27.8 Seconds (25.1-36.5) 09/14/17 14:45 - Constitutional Appears: Well, Non-toxic, No Acute Distress - Extremities Exam Extremities Exam: absent: Calf Tenderness Additional comments: L foot focused: VASC- DP/PT pulses are faintly palpable, skin temp runs warm to warm with increased calor to L hallux, moderate edema noted to hallux, cap refill is wnl x 9 digits but delayed to L hallux secondary to venous congestiona NEURO- gross and protective pedal sensation are diminished DERM- fulll thickness ulceration is noted to plantar aspect of L hallux measures approximately 1.5x1.5x0.4cm, neg probe to bone, malodor absent today, there is fibronecrotic tissue noted to central wound bed with mixed granulation tissue, minimal serosanguinous drainage, neg purulence, neg fluctuance, neg ascending cellulitis MSK- pt able to wiggle all toes freely, neg tenderness to L hallux, no gross deformities appreciated - Neurological Exam Neurological Exam: Alert, Awake, Oriented x3 - Psychiatric Exam Psychiatric exam: Normal Affect, Normal Mood Assessment and Plan - Assessment and Plan (Free Text) Assessment: 57 yo female pt with infected ulceration of L hallux 2/2 diabetic neuropathy Plan: Pt S&E at bedside Plan discussed with Dr. Carter Afebrile, neg leuocytosis, ESR is elevated at 55 Wound cx results: pending L foot MRI: full report pending Abx as per ID Vascular consult pending Wound cleansed with saline and dressed with betadine, DSD Forefoot offloading shoe to be dispensed by physical therapy, pt may WB to L heel Podiatry will follow
--- NOTE | 2017-09-16 15:49 | PN ---
DATE: 09/16/2017 SUBJECTIVE: The patient is seen in bed, in no acute distress, nontoxic. No fevers. PHYSICAL EXAMINATION: VITAL SIGNS: Temperature is 98, blood pressure is 120/70, respiratory rate of 16. HEENT: Examination of HEENT is unremarkable. NECK: Supple. LUNGS: Have decreased breath sounds. HEART: Normal S1, S2. ABDOMEN: Soft, nontender. LABORATORY DATA: Laboratory examination reveals a white count of 4.6, hemoglobin of 12, platelets of 287. Chemistries reveals a BUN of 9, creatinine 0.8. Procalcitonin 0.3. Serology: HIV is negative. Influenza is negative. Microbiology reveals the blood cultures are negative. The left foot culture is pending. ASSESSMENT AND PLAN: A 57-year-old female with diabetes mellitus, who was admitted with sepsis with a left big toe cellulitis and necrosis, waiting for MRI results to rule out osteomyelitis, currently on vancomycin and Zosyn and culture results pending and imaging results also pending. Arterial Doppler also pending. We will follow with you. Jesus Moss MD
[2017-09-17] MEDS: Piperacill/Tazo 4.5gm in NS 4.5 GM/100 ML BAG IVPB SCH ×4 (05:22→23:57)
[2017-09-17 07:08] LABS: BASO # 0.03 K/mm3 (0.0-2.0); BASO % 0.5 % (0.0-3.0); EOS # 0.1 (0.0-0.7); EOS % 1.9 % (1.5-5.0); GRAN # 3.46 (1.4-6.5); GRAN % 59.1 % (50.0-68.0); HEMOGLOBIN 12.7 g/dL (12.0-16.0); LYMPH # 1.8 (1.2-3.4); LYMPH % 30.1 % (22.0-35.0); MEAN CELL VOLUME 86.6 fl (80.0-105.0); MEAN CORPUSCULAR HEMOGLOBIN 29.8 pg (25.0-35.0); MEAN CORPUSCULAR HGB CONC 34.4 g/dl (31.0-37.0); MEAN PLATELET VOLUME 9.2 fl (7.0-11.0); MONO # 0.5 (0.1-0.6); MONO % 8.4 % (1.0-6.0); RBC 4.26 10^6/uL (3.5-6.1); RED CELL DISTRIBUTION WIDTH 12.4 % (11.5-14.5); WHITE BLOOD COUNT 5.9 10^3/ul (4.5-11.0)
[2017-09-17 07:35] LABS: ALB/GLOB RATIO 1.2 (1.1-1.8); ALBUMIN 3.8 g/dL (3.0-4.8); ALT/SGPT 48 U/L (7-56); AST/SGOT 31 U/L (14-36); BLOOD UREA NITROGEN 9 mg/dL (7-21); CALCIUM 9.1 mg/dL (8.4-10.5); GFR AFRICAN-AMERICAN > 60; GFR NON-AFRICAN AMERICAN > 60
[2017-09-17] MEDS: Insulin Reg-MEDIUM-Coverage SC SCH ×4 (08:07→22:20)
[2017-09-17] MEDS: Enoxaparin 40 mg Syringe SC SCH (09:26)
[2017-09-17] MEDS: CADEXOMER IODINE 0.9% GEL 10G TOP SCH (09:27)
[2017-09-17] MEDS: Vancomycin 1gm in NS 250ml 1 GM/250 ML BAG IVPB SCH ×2 (09:30→22:18)
[2017-09-17] MEDS: Non Formulary Medication (Alogliptin Benzoate [Alogliptin] 25 MG) PO SCH (10:17)
--- NOTE | 2017-09-17 12:01 | US ---
PROCEDURE: Lower extremity JESSICA exam HISTORY: Peripheral vascular disease with pain and ulceration. Diabetes. Smoker. PHYSICIAN(S): Lonnie Garcia MD. FINDINGS: The resting JESSICA's are normal: right, 1.05and left, 1.14. The brachial systolic pressures are symmetric. The high thigh pressures and waveforms are relatively normal. The calf PVR waveforms augment normally. No significant gradients are noted across the thighs. The left ankle and metatarsal PVR waveforms are relatively normal. The right ankle PVR waveform and right metatarsal waveform are mildly diminished. This is suggestive of right small vessel disease. IMPRESSION: 1. Relatively normal JESSICA/PVR exam at rest. 2. Possible right small vessel disease
[2017-09-17] MEDS: Lactobacillus Acidophilus 500 MU Cap PO SCH ×2 (12:29→17:26)
--- NOTE | 2017-09-17 13:39 | CP.PCM.PN ---
<Griselda Verdin - Last Filed: 09/17/17 13:35> Subjective - Date & Time of Evaluation Date of Evaluation: 09/17/17 Time of Evaluation: 13:35 - Subjective Subjective: Griselda Verdin, PGY1, Progress Note for Dr Clay: Patient seen and examined at bedside. No acute events overnight. Pt states that she is doing well, ambulating in the hallway. Denies fevers, chills, drainage, nausea, vomiting, abdominal pain, leg swelling. Objective - Vital Signs/Intake and Output Vital Signs (last 24 hours): Temp Pulse Resp BP Pulse Ox 97.9 F 68 20 128/77 98 09/17/17 06:00 09/17/17 06:00 09/17/17 06:00 09/17/17 06:00 09/17/17 06:00 Intake and Output: 09/17/17 09/17/17 06:59 18:59 Intake Total 1240 Output Total 0 Balance 1240 - Medications Medications: Current Medications Acetaminophen (Tylenol 325mg Tab) 650 mg PO Q6H PRN PRN Reason: Headache Last Admin: 09/15/17 10:07 Dose: 650 mg Cadexomer Iodine (Iodosorb) 0 gm TOP DAILY [facility] Last Admin: 09/17/17 09:27 Dose: 10 gm Enoxaparin Sodium (Lovenox) 40 mg SC DAILY [facility] PRN Reason: Protocol Last Admin: 09/17/17 09:26 Dose: 40 mg Famotidine (Pepcid) 20 mg PO DAILY [facility] Last Admin: 09/17/17 09:26 Dose: 20 mg Vancomycin HCl (Vancomycin 1gm) 1 gm in 250 mls @ 167 mls/hr IVPB Q12H [facility] PRN Reason: Protocol Last Admin: 09/17/17 09:30 Dose: 167 mls/hr Piperacillin Sod/Tazobactam Sod (Zosyn 4.5 Gm In Ns 100ml) 4.5 gm in 100 mls @ 200 mls/hr IVPB Q6 [facility] PRN Reason: Protocol Stop: 09/22/17 00:01 Last Admin: 09/17/17 12:29 Dose: 200 mls/hr Ibuprofen (Motrin Tab) 400 mg PO Q6H PRN PRN Reason: Pain, moderate (4-7) Last Admin: 09/16/17 17:45 Dose: 400 mg Insulin Human Regular (Humulin R Med) 0 units SC ACHS [facility] PRN Reason: Protocol Last Admin: 09/17/17 12:29 Dose: 1 unit Lactobacillus Acidophilus (Bacid Acidophilus) 1 cap PO BID [facility] Last Admin: 09/17/17 12:29 Dose: 1 cap Metformin HCl (Glucophage) 1,000 mg PO BID [facility] Last Admin: 09/17/17 09:26 Dose: 1,000 mg Nicotine (Nicoderm Cq) 1 patch TD DAILY [facility] Last Admin: 09/17/17 09:26 Dose: 1 patch Non-Formulary Medication (Alogliptin Benzoate [Alogliptin]) 25 mg PO DAILY [facility] Last Admin: 09/17/17 10:17 Dose: Not Given Ondansetron HCl (Zofran Inj) 4 mg IVP Q6 PRN PRN Reason: Nausea/Vomiting - Labs Labs: 09/17/17 06:45 09/17/17 06:45 PT 12.0 SECONDS (9.4-12.5) 09/14/17 14:45 INR 1.05 (0.93-1.08) 09/14/17 14:45 APTT 27.8 Seconds (25.1-36.5) 09/14/17 14:45 - Additional Findings Additional findings: - Constitutional Appears: Non-toxic, No Acute Distress - Head Exam Head Exam: ATRAUMATIC, NORMOCEPHALIC - Eye Exam Eye Exam: EOMI, PERRL. absent: Conjunctival injection, Nystagmus, Scleral icterus Pupil Exam: NORMAL ACCOMODATION, PERRL. absent: Fixed, Irregular, Miosis, Unequal - ENT Exam ENT Exam: Mucous Membranes Moist - Neck Exam Neck Exam: Full ROM - Respiratory Exam Respiratory Exam: Clear to Ausculation Bilateral, NORMAL BREATHING PATTERN. absent: Accessory Muscle Use, Rales, Rhonchi, Wheezes, Respiratory Distress, Stridor - Cardiovascular Exam Cardiovascular Exam: +S1, +S2. absent: Murmur - GI/Abdominal Exam GI & Abdominal Exam: Soft, Normal Bowel Sounds. absent: Distended, Firm, Guarding, Rigid, Tenderness, Mass, Organomegaly, Rebound - Extremities Exam Additional comments: + left foot covered in dressing, clean, dry, intact. No odor noted. - Back Exam Back Exam: NORMAL INSPECTION - Neurological Exam Neurological Exam: Alert, Awake, Oriented x3 - Psychiatric Exam Psychiatric exam: Normal Affect, Normal Mood - Skin Skin Exam: Dry, Normal Color, Warm Assessment and Plan - Assessment and Plan (Free Text) Assessment: 57 year old female with PMH DM, presents for left foot 1st digit abscess, s/p I& D: Left foot 1st digit abscess, s/p I&D: - foot xray showed soft tissue swelling, ulcer 1st digit, no manifestations of acute osteomyelitis - foot MRI prelim read states no osteomyelitis. Pending official read. Call placed to radiology today to read results. - afebrile, with mild elevation of leukocytes in ED. leukocytosis resolved - received vancomycin in ED, will continue - Continue vancomycin and zosyn - podiatry consulted. appreciate recs - ID consulted. Appreciate recs. - CRP and ESR elevated - HIV NR - HgbA1C 8.3 (prev 12.8 in 2013). - Blood cultures 2/2 NTD. - Wound culture: gram stain negative, awaiting culture results. - Arterial lower extremity duplex: normal JESSICA/PVR at rest, possible right small vessel disease. Hx of DM: - HgbA1C 8.3 (prev 12.8 in 2013). - ISS- med - fingers ticks ACHS - continue home alogliptin and metformin Hx of tabacco use: - advised smoking cessation - nicotine patch GI ppx- pepcid DVT ppx- lovenox Case seen and discussed with Dr Clay. Griselda Verdin, PGY1 <Spenser Clay - Last Filed: 09/17/17 13:50> Objective - Vital Signs/Intake and Output Vital Signs (last 24 hours): Temp Pulse Resp BP Pulse Ox 97.9 F 68 20 128/77 98 09/17/17 06:00 09/17/17 06:00 09/17/17 06:00 09/17/17 06:00 09/17/17 06:00 Intake and Output: 09/17/17 09/17/17 06:59 18:59 Intake Total 1240 Output Total 0 Balance 1240 - Medications Medications: Current Medications Acetaminophen (Tylenol 325mg Tab) 650 mg PO Q6H PRN PRN Reason: Headache Last Admin: 09/15/17 10:07 Dose: 650 mg Cadexomer Iodine (Iodosorb) 0 gm TOP DAILY [facility] Last Admin: 09/17/17 09:27 Dose: 10 gm Enoxaparin Sodium (Lovenox) 40 mg SC DAILY [facility] PRN Reason: Protocol Last Admin: 09/17/17 09:26 Dose: 40 mg Famotidine (Pepcid) 20 mg PO DAILY [facility] Last Admin: 09/17/17 09:26 Dose: 20 mg Vancomycin HCl (Vancomycin 1gm) 1 gm in 250 mls @ 167 mls/hr IVPB Q12H [facility] PRN Reason: Protocol Last Admin: 09/17/17 09:30 Dose: 167 mls/hr Piperacillin Sod/Tazobactam Sod (Zosyn 4.5 Gm In Ns 100ml) 4.5 gm in 100 mls @ 200 mls/hr IVPB Q6 [facility] PRN Reason: Protocol Stop: 09/22/17 00:01 Last Admin: 09/17/17 12:29 Dose: 200 mls/hr Ibuprofen (Motrin Tab) 400 mg PO Q6H PRN PRN Reason: Pain, moderate (4-7) Last Admin: 09/16/17 17:45 Dose: 400 mg Insulin Human Regular (Humulin R Med) 0 units SC ACHS [facility] PRN Reason: Protocol Last Admin: 09/17/17 12:29 Dose: 1 unit Lactobacillus Acidophilus (Bacid Acidophilus) 1 cap PO BID [facility] Last Admin: 09/17/17 12:29 Dose: 1 cap Metformin HCl (Glucophage) 1,000 mg PO BID [facility] Last Admin: 09/17/17 09:26 Dose: 1,000 mg Nicotine (Nicoderm Cq) 1 patch TD DAILY [facility] Last Admin: 09/17/17 09:26 Dose: 1 patch Non-Formulary Medication (Alogliptin Benzoate [Alogliptin]) 25 mg PO DAILY [facility] Last Admin: 09/17/17 10:17 Dose: Not Given Ondansetron HCl (Zofran Inj) 4 mg IVP Q6 PRN PRN Reason: Nausea/Vomiting - Labs Labs: 09/17/17 06:45 09/17/17 06:45 PT 12.0 SECONDS (9.4-12.5) 09/14/17 14:45 INR 1.05 (0.93-1.08) 09/14/17 14:45 APTT 27.8 Seconds (25.1-36.5) 09/14/17 14:45 Attending/Attestation - Attestation I have personally seen and examined this patient.: Yes I have fully participated in the care of the patient.: Yes I have reviewed all pertinent clinical information, including history, physical exam and plan: Yes Notes (Text): 09/17/17 13:47 57 year old female with past medical history of diabetes who presented with left foot 1st digit abscess. She is s/p I&D. Foot xray and MRI were negative for osteomyelitis. Continue with iv antibiotics as per ID. Continue with wound care as per podiatry. Wound culture is growing coag negative staph. Spenser Clay MD Hospitalist.
--- NOTE | 2017-09-17 13:43 | MRI ---
PROCEDURE: MRI of the left foot without contrast HISTORY: r/o osteomylitis COMPARISON: TECHNIQUE: MRI of the left foot was performed in multiple planes using multiple pulse sequences. FINDINGS: There is a soft tissue fluid collection on the plantar aspect of the big toe measuring 24 mm in diameter and 6 mm in thickness. There is no marrow edema to suggest osteomyelitis. There is also no cortical destruction. The report concurs with the preliminary [facility] report IMPRESSION: No evidence of osteomyelitis.
--- NOTE | 2017-09-17 16:38 | CP.PCM.PN ---
Subjective - Date & Time of Evaluation Date of Evaluation: 09/17/17 Time of Evaluation: 15:00 - Subjective Subjective: Left foot is feeling better, not in distress. Objective - Vital Signs/Intake and Output Vital Signs (last 24 hours): Temp Pulse Resp BP Pulse Ox 97.9 F 68 20 128/77 98 09/17/17 06:00 09/17/17 06:00 09/17/17 06:00 09/17/17 06:00 09/17/17 06:00 Intake and Output: 09/17/17 09/17/17 06:59 18:59 Intake Total 1240 Output Total 0 Balance 1240 - Medications Medications: Current Medications Acetaminophen (Tylenol 325mg Tab) 650 mg PO Q6H PRN PRN Reason: Headache Last Admin: 09/15/17 10:07 Dose: 650 mg Cadexomer Iodine (Iodosorb) 0 gm TOP DAILY [facility] Last Admin: 09/17/17 09:27 Dose: 10 gm Enoxaparin Sodium (Lovenox) 40 mg SC DAILY [facility] PRN Reason: Protocol Last Admin: 09/17/17 09:26 Dose: 40 mg Famotidine (Pepcid) 20 mg PO DAILY [facility] Last Admin: 09/17/17 09:26 Dose: 20 mg Vancomycin HCl (Vancomycin 1gm) 1 gm in 250 mls @ 167 mls/hr IVPB Q12H [facility] PRN Reason: Protocol Last Admin: 09/17/17 09:30 Dose: 167 mls/hr Piperacillin Sod/Tazobactam Sod (Zosyn 4.5 Gm In Ns 100ml) 4.5 gm in 100 mls @ 200 mls/hr IVPB Q6 [facility] PRN Reason: Protocol Stop: 09/22/17 00:01 Last Admin: 09/17/17 12:29 Dose: 200 mls/hr Ibuprofen (Motrin Tab) 400 mg PO Q6H PRN PRN Reason: Pain, moderate (4-7) Last Admin: 09/16/17 17:45 Dose: 400 mg Insulin Human Regular (Humulin R Med) 0 units SC ACHS [facility] PRN Reason: Protocol Last Admin: 09/17/17 12:29 Dose: 1 unit Lactobacillus Acidophilus (Bacid Acidophilus) 1 cap PO BID [facility] Last Admin: 09/17/17 12:29 Dose: 1 cap Metformin HCl (Glucophage) 1,000 mg PO BID [facility] Last Admin: 09/17/17 09:26 Dose: 1,000 mg Nicotine (Nicoderm Cq) 1 patch TD DAILY [facility] Last Admin: 09/17/17 09:26 Dose: 1 patch Non-Formulary Medication (Alogliptin Benzoate [Alogliptin]) 25 mg PO DAILY [facility] Last Admin: 09/17/17 10:17 Dose: Not Given Ondansetron HCl (Zofran Inj) 4 mg IVP Q6 PRN PRN Reason: Nausea/Vomiting - Labs Labs: 09/17/17 06:45 09/17/17 06:45 PT 12.0 SECONDS (9.4-12.5) 09/14/17 14:45 INR 1.05 (0.93-1.08) 09/14/17 14:45 APTT 27.8 Seconds (25.1-36.5) 09/14/17 14:45 - Constitutional Appears: Non-toxic - Head Exam Head Exam: NORMAL INSPECTION - Neck Exam Neck Exam: absent: Meningismus - Respiratory Exam Respiratory Exam: Decreased Breath Sounds - Cardiovascular Exam Cardiovascular Exam: +S1, +S2 - GI/Abdominal Exam GI & Abdominal Exam: Soft. absent: Tenderness - Extremities Exam Additional comments: left hallux with dressings in place Assessment and Plan - Assessment and Plan (Free Text) Plan: Assessment Left hallux cellulitis with necrosis, R/O osteomyelitis R/O PAD DM Plan Continue Vancomycin and Zosyn pending final wound cx results, MRI of the foot and doppler Ultrasound of the legs follow up further plans of Podiatry will monitor clinically
--- NOTE | 2017-09-17 17:30 | CP.PCM.PN ---
<Ivana Oropeza - Last Filed: 09/17/17 17:24> Subjective - Date & Time of Evaluation Date of Evaluation: 09/17/17 Time of Evaluation: 17:24 - Subjective Subjective: Podiatry Progress Note- Dr. Carter 57 year old diabetic female seen at bedside today for f/u L infected hallux ulceration. Pt is 2 day s/p bedside I&D. Pt denies any pain to the foot today. Reports that the redness is starting to go down a little. Denies f/n/v/c/sob/cp at this time. Offers no further complaints. Objective - Vital Signs/Intake and Output Vital Signs (last 24 hours): Temp Pulse Resp BP Pulse Ox 98.3 F 88 20 105/66 100 09/17/17 14:00 09/17/17 14:00 09/17/17 14:00 09/17/17 14:00 09/17/17 14:00 Intake and Output: 09/17/17 09/17/17 06:59 18:59 Intake Total 1240 720 Output Total 0 Balance 1240 720 - Medications Medications: Current Medications Acetaminophen (Tylenol 325mg Tab) 650 mg PO Q6H PRN PRN Reason: Headache Last Admin: 09/15/17 10:07 Dose: 650 mg Cadexomer Iodine (Iodosorb) 0 gm TOP DAILY [facility] Last Admin: 09/17/17 09:27 Dose: 10 gm Enoxaparin Sodium (Lovenox) 40 mg SC DAILY [facility] PRN Reason: Protocol Last Admin: 09/17/17 09:26 Dose: 40 mg Famotidine (Pepcid) 20 mg PO DAILY [facility] Last Admin: 09/17/17 09:26 Dose: 20 mg Vancomycin HCl (Vancomycin 1gm) 1 gm in 250 mls @ 167 mls/hr IVPB Q12H [facility] PRN Reason: Protocol Last Admin: 09/17/17 09:30 Dose: 167 mls/hr Piperacillin Sod/Tazobactam Sod (Zosyn 4.5 Gm In Ns 100ml) 4.5 gm in 100 mls @ 200 mls/hr IVPB Q6 [facility] PRN Reason: Protocol Stop: 09/22/17 00:01 Last Admin: 09/17/17 12:29 Dose: 200 mls/hr Ibuprofen (Motrin Tab) 400 mg PO Q6H PRN PRN Reason: Pain, moderate (4-7) Last Admin: 09/17/17 14:13 Dose: 400 mg Insulin Human Regular (Humulin R Med) 0 units SC ACHS [facility] PRN Reason: Protocol Last Admin: 09/17/17 16:36 Dose: Not Given Lactobacillus Acidophilus (Bacid Acidophilus) 1 cap PO BID [facility] Last Admin: 09/17/17 12:29 Dose: 1 cap Metformin HCl (Glucophage) 1,000 mg PO BID [facility] Last Admin: 09/17/17 09:26 Dose: 1,000 mg Nicotine (Nicoderm Cq) 1 patch TD DAILY [facility] Last Admin: 09/17/17 09:26 Dose: 1 patch Non-Formulary Medication (Alogliptin Benzoate [Alogliptin]) 25 mg PO DAILY [facility] Last Admin: 09/17/17 10:17 Dose: Not Given Ondansetron HCl (Zofran Inj) 4 mg IVP Q6 PRN PRN Reason: Nausea/Vomiting - Labs Labs: 09/17/17 06:45 09/17/17 06:45 PT 12.0 SECONDS (9.4-12.5) 09/14/17 14:45 INR 1.05 (0.93-1.08) 09/14/17 14:45 APTT 27.8 Seconds (25.1-36.5) 09/14/17 14:45 - Constitutional Appears: Well, Non-toxic, No Acute Distress - Extremities Exam Additional comments: L foot focused: VASC- DP/PT pulses are faintly palpable, skin temp runs warm to warm with increased calor to L hallux, moderate edema noted to hallux, cap refill is wnl x 9 digits but delayed to L hallux secondary to venous congestiona NEURO- gross and protective pedal sensation are diminished DERM- fulll thickness ulceration is noted to plantar aspect of L hallux measures approximately 1.5x1.5x0.4cm, neg probe to bone, malodor absent, there is fibronecrotic tissue noted to central wound bed with mixed granulation tissue , minimal serous drainage, neg purulence, neg fluctuance, neg ascending cellulitis, erythema localized to the hallux MSK- pt able to wiggle all toes freely, neg tenderness to L hallux, no gross deformities appreciated - Neurological Exam Neurological Exam: Alert, Awake, Oriented x3 - Psychiatric Exam Psychiatric exam: Normal Affect, Normal Mood Assessment and Plan - Assessment and Plan (Free Text) Assessment: 57 year old female patient with infected ulceration of L hallux 2/2 diabetic neuropathy Plan: Pt S&E at bedside with Dr. Carter Afebrile, neg leuocytosis, ESR is elevated at 55 on previous labs Wound cx results: coag neg Staph L foot MRI: no evidence of OM Abx as per ID Vascular consulted Wound cleansed with saline and dressed with iodosorb, adaptic, DSD Forefoot offloading shoe - educated proper ambulation in the shoe Patient is stable from podiatry standpoint; upon follow up with Dr. Carter Podiatry will follow while in-house <Bhargavi Carter - Last Filed: 09/19/17 07:55> Objective - Vital Signs/Intake and Output Vital Signs (last 24 hours): Temp Pulse Resp BP Pulse Ox 98.3 F 70 16 124/79 98 09/18/17 23:23 09/18/17 23:23 09/18/17 23:23 09/18/17 23:23 09/18/17 23:23 Intake and Output: 09/19/17 09/19/17 06:59 18:59 Intake Total 600 Balance 600 - Medications Medications: Current Medications Acetaminophen (Tylenol 325mg Tab) 650 mg PO Q6H PRN PRN Reason: Headache Last Admin: 09/15/17 10:07 Dose: 650 mg Cadexomer Iodine (Iodosorb) 0 gm TOP DAILY [facility] Last Admin: 09/18/17 09:18 Dose: 10 gm Enoxaparin Sodium (Lovenox) 40 mg SC DAILY [facility] PRN Reason: Protocol Last Admin: 09/18/17 09:14 Dose: 40 mg Famotidine (Pepcid) 20 mg PO DAILY [facility] Last Admin: 09/18/17 09:14 Dose: 20 mg Piperacillin Sod/Tazobactam Sod (Zosyn 4.5 Gm In Ns 100ml) 4.5 gm in 100 mls @ 200 mls/hr IVPB Q6 [facility] PRN Reason: Protocol Stop: 09/22/17 00:01 Last Admin: 09/19/17 05:08 Dose: 200 mls/hr Vancomycin HCl (Vancomycin 1gm) 1 gm in 250 mls @ 167 mls/hr IVPB Q12H [facility] PRN Reason: Protocol Stop: 09/27/17 22:31 Last Admin: 09/18/17 23:31 Dose: 167 mls/hr Ibuprofen (Motrin Tab) 400 mg PO Q6H PRN PRN Reason: Pain, moderate (4-7) Last Admin: 09/17/17 14:13 Dose: 400 mg Insulin Human Regular (Humulin R Med) 0 units SC ACHS [facility] PRN Reason: Protocol Last Admin: 09/18/17 22:16 Dose: Not Given Lactobacillus Acidophilus (Bacid Acidophilus) 1 cap PO BID [facility] Last Admin: 09/18/17 17:53 Dose: 1 cap Metformin HCl (Glucophage) 1,000 mg PO BID [facility] Last Admin: 09/18/17 17:53 Dose: 1,000 mg Nicotine (Nicoderm Cq) 1 patch TD DAILY [facility] Last Admin: 09/18/17 09:14 Dose: 1 patch Non-Formulary Medication (Alogliptin Benzoate [Alogliptin]) 25 mg PO DAILY [facility] Last Admin: 09/18/17 09:14 Dose: Not Given Ondansetron HCl (Zofran Inj) 4 mg IVP Q6 PRN PRN Reason: Nausea/Vomiting - Labs Labs: 09/19/17 07:03 09/19/17 07:03 PT 12.0 SECONDS (9.4-12.5) 09/14/17 14:45 INR 1.05 (0.93-1.08) 09/14/17 14:45 APTT 27.8 Seconds (25.1-36.5) 09/14/17 14:45 Attending/Attestation - Attestation I have personally seen and examined this patient.: Yes I have fully participated in the care of the patient.: Yes I have reviewed all pertinent clinical information, including history, physical exam and plan: Yes
[2017-09-18] MEDS: Piperacill/Tazo 4.5gm in NS 4.5 GM/100 ML BAG IVPB SCH ×4 (05:19→23:15)
[2017-09-18 07:29] LABS: BASO # 0.03 K/mm3 (0.0-2.0); BASO % 0.5 % (0.0-3.0); EOS # 0.2 (0.0-0.7); EOS % 2.5 % (1.5-5.0); GRAN # 3.98 (1.4-6.5); GRAN % 63.3 % (50.0-68.0); HEMOGLOBIN 13.7 g/dL (12.0-16.0); LYMPH # 1.6 (1.2-3.4); LYMPH % 25.9 % (22.0-35.0); MEAN CELL VOLUME 86.8 fl (80.0-105.0); MEAN CORPUSCULAR HEMOGLOBIN 30.2 pg (25.0-35.0); MEAN CORPUSCULAR HGB CONC 34.8 g/dl (31.0-37.0); MEAN PLATELET VOLUME 9.4 fl (7.0-11.0); MONO # 0.5 (0.1-0.6); MONO % 7.8 % (1.0-6.0); RBC 4.54 10^6/uL (3.5-6.1); RED CELL DISTRIBUTION WIDTH 12.4 % (11.5-14.5); WHITE BLOOD COUNT 6.3 10^3/ul (4.5-11.0)
[2017-09-18 07:46] LABS: ALB/GLOB RATIO 1.4 (1.1-1.8); ALBUMIN 4.2 g/dL (3.0-4.8); ALT/SGPT 54 U/L (7-56); AST/SGOT 43 U/L (14-36); BLOOD UREA NITROGEN 10 mg/dL (7-21); CALCIUM 9.3 mg/dL (8.4-10.5); GFR AFRICAN-AMERICAN > 60; GFR NON-AFRICAN AMERICAN > 60
[2017-09-18] MEDS: Insulin Reg-MEDIUM-Coverage SC SCH ×4 (08:04→22:16)
[2017-09-18] MEDS: Lactobacillus Acidophilus 500 MU Cap PO SCH ×2 (09:14→17:53)
[2017-09-18] MEDS: Non Formulary Medication (Alogliptin Benzoate [Alogliptin] 25 MG) PO SCH (09:14)
[2017-09-18] MEDS: Enoxaparin 40 mg Syringe SC SCH (09:14)
[2017-09-18] MEDS: Vancomycin 1gm in NS 250ml 1 GM/250 ML BAG IVPB SCH ×2 (09:15→23:31)
[2017-09-18] MEDS: CADEXOMER IODINE 0.9% GEL 10G TOP SCH (09:18)
--- NOTE | 2017-09-18 12:26 | CP.PCM.PN ---
<Ivana Oropeza - Last Filed: 09/18/17 12:21> Subjective - Date & Time of Evaluation Date of Evaluation: 09/18/17 Time of Evaluation: 12:21 - Subjective Subjective: Podiatry Progress Note- Dr. Carter/Dr. Gómez 57 year old diabetic female seen at bedside today for f/u L infected hallux ulceration. Pt is 3 days s/p bedside I&D. Pt denies any pain to the foot today. Denies any acute overnight events. Reports she slept well yesterday. Reports that the redness is starting to go down a little. Denies f/n/v/c/sob/cp at this time. Offers no further complaints. Objective - Vital Signs/Intake and Output Vital Signs (last 24 hours): Temp Pulse Resp BP Pulse Ox 97.9 F 64 20 140/80 97 09/18/17 06:00 09/18/17 06:00 09/18/17 06:00 09/18/17 06:00 09/18/17 06:00 Intake and Output: 09/18/17 09/18/17 06:59 18:59 Intake Total 960 Balance 960 - Medications Medications: Current Medications Acetaminophen (Tylenol 325mg Tab) 650 mg PO Q6H PRN PRN Reason: Headache Last Admin: 09/15/17 10:07 Dose: 650 mg Cadexomer Iodine (Iodosorb) 0 gm TOP DAILY [facility] Last Admin: 09/18/17 09:18 Dose: 10 gm Enoxaparin Sodium (Lovenox) 40 mg SC DAILY [facility] PRN Reason: Protocol Last Admin: 09/18/17 09:14 Dose: 40 mg Famotidine (Pepcid) 20 mg PO DAILY [facility] Last Admin: 09/18/17 09:14 Dose: 20 mg Piperacillin Sod/Tazobactam Sod (Zosyn 4.5 Gm In Ns 100ml) 4.5 gm in 100 mls @ 200 mls/hr IVPB Q6 [facility] PRN Reason: Protocol Stop: 09/22/17 00:01 Last Admin: 09/18/17 11:57 Dose: 200 mls/hr Ibuprofen (Motrin Tab) 400 mg PO Q6H PRN PRN Reason: Pain, moderate (4-7) Last Admin: 09/17/17 14:13 Dose: 400 mg Insulin Human Regular (Humulin R Med) 0 units SC ACHS [facility] PRN Reason: Protocol Last Admin: 09/18/17 12:00 Dose: 3 unit Lactobacillus Acidophilus (Bacid Acidophilus) 1 cap PO BID [facility] Last Admin: 09/18/17 09:14 Dose: 1 cap Metformin HCl (Glucophage) 1,000 mg PO BID [facility] Last Admin: 09/18/17 09:14 Dose: 1,000 mg Nicotine (Nicoderm Cq) 1 patch TD DAILY [facility] Last Admin: 09/18/17 09:14 Dose: 1 patch Non-Formulary Medication (Alogliptin Benzoate [Alogliptin]) 25 mg PO DAILY [facility] Last Admin: 09/18/17 09:14 Dose: Not Given Ondansetron HCl (Zofran Inj) 4 mg IVP Q6 PRN PRN Reason: Nausea/Vomiting - Labs Labs: 09/18/17 07:00 09/18/17 07:00 PT 12.0 SECONDS (9.4-12.5) 09/14/17 14:45 INR 1.05 (0.93-1.08) 09/14/17 14:45 APTT 27.8 Seconds (25.1-36.5) 09/14/17 14:45 - Constitutional Appears: Well, Non-toxic, No Acute Distress - Extremities Exam Additional comments: L foot focused: VASC- DP/PT pulses are faintly palpable, skin temp runs warm to warm with increased calor to L hallux, moderate edema noted to hallux, cap refill is wnl x 9 digits but delayed to L hallux secondary to venous congestiona NEURO- gross and protective pedal sensation are diminished DERM- fulll thickness ulceration is noted to plantar aspect of L hallux measures approximately 1.5x1.5x0.4cm, neg probe to bone, malodor absent, there is fibronecrotic tissue noted to central wound bed with mixed granulation tissue , minimal serous drainage, neg purulence, neg fluctuance, neg ascending cellulitis, erythema localized to the hallux appears to be decreasing MSK- pt able to wiggle all toes freely, neg tenderness to L hallux, no gross deformities appreciated - Neurological Exam Neurological Exam: Alert, Awake, Oriented x3 - Psychiatric Exam Psychiatric exam: Normal Affect, Normal Mood Assessment and Plan - Assessment and Plan (Free Text) Assessment: 57 year old female patient with infected ulceration of L hallux 2/2 diabetic neuropathy Plan: Pt S&E at bedside with Dr. Gómez Afebrile, neg leuocytosis, ESR is elevated at 55 on previous labs Wound cx results: coag neg Staph L foot MRI: no evidence of OM Abx as per ID Vascular consulted Wound cleansed with saline and dressed with iodosorb, adaptic, DSD Forefoot offloading shoe - educated proper ambulation in the shoe Patient is stable from podiatry standpoint; upon follow up with Dr. Carter/Dr. Gómez Podiatry will follow while in-house <Rajat Gómez - Last Filed: 09/19/17 07:34> Objective - Vital Signs/Intake and Output Vital Signs (last 24 hours): Temp Pulse Resp BP Pulse Ox 98.3 F 70 16 124/79 98 09/18/17 23:23 09/18/17 23:23 09/18/17 23:23 09/18/17 23:23 09/18/17 23:23 Intake and Output: 09/19/17 09/19/17 06:59 18:59 Intake Total 600 Balance 600 - Medications Medications: Current Medications Acetaminophen (Tylenol 325mg Tab) 650 mg PO Q6H PRN PRN Reason: Headache Last Admin: 09/15/17 10:07 Dose: 650 mg Cadexomer Iodine (Iodosorb) 0 gm TOP DAILY [facility] Last Admin: 09/18/17 09:18 Dose: 10 gm Enoxaparin Sodium (Lovenox) 40 mg SC DAILY [facility] PRN Reason: Protocol Last Admin: 09/18/17 09:14 Dose: 40 mg Famotidine (Pepcid) 20 mg PO DAILY [facility] Last Admin: 09/18/17 09:14 Dose: 20 mg Piperacillin Sod/Tazobactam Sod (Zosyn 4.5 Gm In Ns 100ml) 4.5 gm in 100 mls @ 200 mls/hr IVPB Q6 [facility] PRN Reason: Protocol Stop: 09/22/17 00:01 Last Admin: 09/19/17 05:08 Dose: 200 mls/hr Vancomycin HCl (Vancomycin 1gm) 1 gm in 250 mls @ 167 mls/hr IVPB Q12H [facility] PRN Reason: Protocol Stop: 09/27/17 22:31 Last Admin: 09/18/17 23:31 Dose: 167 mls/hr Ibuprofen (Motrin Tab) 400 mg PO Q6H PRN PRN Reason: Pain, moderate (4-7) Last Admin: 09/17/17 14:13 Dose: 400 mg Insulin Human Regular (Humulin R Med) 0 units SC ACHS [facility] PRN Reason: Protocol Last Admin: 09/18/17 22:16 Dose: Not Given Lactobacillus Acidophilus (Bacid Acidophilus) 1 cap PO BID [facility] Last Admin: 09/18/17 17:53 Dose: 1 cap Metformin HCl (Glucophage) 1,000 mg PO BID [facility] Last Admin: 09/18/17 17:53 Dose: 1,000 mg Nicotine (Nicoderm Cq) 1 patch TD DAILY [facility] Last Admin: 09/18/17 09:14 Dose: 1 patch Non-Formulary Medication (Alogliptin Benzoate [Alogliptin]) 25 mg PO DAILY [facility] Last Admin: 09/18/17 09:14 Dose: Not Given Ondansetron HCl (Zofran Inj) 4 mg IVP Q6 PRN PRN Reason: Nausea/Vomiting - Labs Labs: 09/19/17 07:03 09/19/17 07:03 PT 12.0 SECONDS (9.4-12.5) 09/14/17 14:45 INR 1.05 (0.93-1.08) 09/14/17 14:45 APTT 27.8 Seconds (25.1-36.5) 09/14/17 14:45 Attending/Attestation - Attestation I have personally seen and examined this patient.: Yes I have fully participated in the care of the patient.: Yes I have reviewed all pertinent clinical information, including history, physical exam and plan: Yes
--- NOTE | 2017-09-18 12:27 | CP.PCM.PN ---
<Griselda Verdin - Last Filed: 09/18/17 12:24> Subjective - Date & Time of Evaluation Date of Evaluation: 09/18/17 Time of Evaluation: 12:24 - Subjective Subjective: Griselda Verdin, PGY1, Progress Note for Dr Clay: Patient seen and examined at bedside. No acute events overnight. Pt reports adequate pain control, states that she is ambulating well. Denies fevers, chills, drainage, nausea, vomiting, abdominal pain, leg swelling. Objective - Vital Signs/Intake and Output Vital Signs (last 24 hours): Temp Pulse Resp BP Pulse Ox 97.9 F 64 20 140/80 97 09/18/17 06:00 09/18/17 06:00 09/18/17 06:00 09/18/17 06:00 09/18/17 06:00 Intake and Output: 09/18/17 09/18/17 06:59 18:59 Intake Total 960 Balance 960 - Medications Medications: Current Medications Acetaminophen (Tylenol 325mg Tab) 650 mg PO Q6H PRN PRN Reason: Headache Last Admin: 09/15/17 10:07 Dose: 650 mg Cadexomer Iodine (Iodosorb) 0 gm TOP DAILY [facility] Last Admin: 09/18/17 09:18 Dose: 10 gm Enoxaparin Sodium (Lovenox) 40 mg SC DAILY [facility] PRN Reason: Protocol Last Admin: 09/18/17 09:14 Dose: 40 mg Famotidine (Pepcid) 20 mg PO DAILY [facility] Last Admin: 09/18/17 09:14 Dose: 20 mg Piperacillin Sod/Tazobactam Sod (Zosyn 4.5 Gm In Ns 100ml) 4.5 gm in 100 mls @ 200 mls/hr IVPB Q6 [facility] PRN Reason: Protocol Stop: 09/22/17 00:01 Last Admin: 09/18/17 11:57 Dose: 200 mls/hr Ibuprofen (Motrin Tab) 400 mg PO Q6H PRN PRN Reason: Pain, moderate (4-7) Last Admin: 09/17/17 14:13 Dose: 400 mg Insulin Human Regular (Humulin R Med) 0 units SC ACHS [facility] PRN Reason: Protocol Last Admin: 09/18/17 12:00 Dose: 3 unit Lactobacillus Acidophilus (Bacid Acidophilus) 1 cap PO BID [facility] Last Admin: 09/18/17 09:14 Dose: 1 cap Metformin HCl (Glucophage) 1,000 mg PO BID [facility] Last Admin: 09/18/17 09:14 Dose: 1,000 mg Nicotine (Nicoderm Cq) 1 patch TD DAILY [facility] Last Admin: 09/18/17 09:14 Dose: 1 patch Non-Formulary Medication (Alogliptin Benzoate [Alogliptin]) 25 mg PO DAILY [facility] Last Admin: 09/18/17 09:14 Dose: Not Given Ondansetron HCl (Zofran Inj) 4 mg IVP Q6 PRN PRN Reason: Nausea/Vomiting - Labs Labs: 09/18/17 07:00 09/18/17 07:00 PT 12.0 SECONDS (9.4-12.5) 09/14/17 14:45 INR 1.05 (0.93-1.08) 09/14/17 14:45 APTT 27.8 Seconds (25.1-36.5) 09/14/17 14:45 - Additional Findings Additional findings: - Constitutional Appears: Non-toxic, No Acute Distress - Head Exam Head Exam: ATRAUMATIC, NORMOCEPHALIC - Eye Exam Eye Exam: EOMI, PERRL. absent: Conjunctival injection, Nystagmus, Scleral icterus Pupil Exam: NORMAL ACCOMODATION, PERRL. absent: Fixed, Irregular, Miosis, Unequal - ENT Exam ENT Exam: Mucous Membranes Moist - Neck Exam Neck Exam: Full ROM - Respiratory Exam Respiratory Exam: Clear to Ausculation Bilateral, NORMAL BREATHING PATTERN. absent: Accessory Muscle Use, Rales, Rhonchi, Wheezes, Respiratory Distress, Stridor - Cardiovascular Exam Cardiovascular Exam: +S1, +S2. absent: Murmur - GI/Abdominal Exam GI & Abdominal Exam: Soft, Normal Bowel Sounds. absent: Distended, Firm, Guarding, Rigid, Tenderness, Mass, Organomegaly, Rebound - Extremities Exam Additional comments: + left foot covered in dressing, clean, dry, intact. No odor noted. - Back Exam Back Exam: NORMAL INSPECTION - Neurological Exam Neurological Exam: Alert, Awake, Oriented x3 - Psychiatric Exam Psychiatric exam: Normal Affect, Normal Mood - Skin Skin Exam: Dry, Normal Color, Warm Assessment and Plan - Assessment and Plan (Free Text) Assessment: 57 year old female with PMH DM, presents for left foot 1st digit abscess, s/p I& D: Left foot 1st digit abscess, s/p I&D: - foot xray showed soft tissue swelling, ulcer 1st digit, no manifestations of acute osteomyelitis - foot MRI: no osteomyelitis. - Arterial lower extremity duplex: normal JESSICA/PVR at rest, possible right small vessel disease. - IR consulted, as per podiatry. will f/u recs. - afebrile, with mild elevation of leukocytes in ED. leukocytosis resolved - received vancomycin in ED, will continue - Continue vancomycin and zosyn - podiatry consulted. appreciate recs. - ID consulted. Appreciate recs. - CRP and ESR elevated - HIV NR - HgbA1C 8.3 (prev 12.8 in 2013). - Blood cultures 2/2 NTD. - Wound culture: gram stain negative, awaiting sensitivity results. Hx of DM: - HgbA1C 8.3 (prev 12.8 in 2013). - ISS- med - fingers ticks ACHS - continue home alogliptin and metformin Hx of tabacco use: - advised smoking cessation - nicotine patch GI ppx- pepcid DVT ppx- lovenox Case seen and discussed with Dr Clay. Griselda Verdin, PGY1 <Spenser Clay - Last Filed: 09/18/17 13:51> Objective - Vital Signs/Intake and Output Vital Signs (last 24 hours): Temp Pulse Resp BP Pulse Ox 97.9 F 64 20 140/80 97 09/18/17 06:00 09/18/17 06:00 09/18/17 06:00 09/18/17 06:00 09/18/17 06:00 Intake and Output: 09/18/17 09/18/17 06:59 18:59 Intake Total 960 Balance 960 - Medications Medications: Current Medications Acetaminophen (Tylenol 325mg Tab) 650 mg PO Q6H PRN PRN Reason: Headache Last Admin: 09/15/17 10:07 Dose: 650 mg Cadexomer Iodine (Iodosorb) 0 gm TOP DAILY [facility] Last Admin: 09/18/17 09:18 Dose: 10 gm Enoxaparin Sodium (Lovenox) 40 mg SC DAILY [facility] PRN Reason: Protocol Last Admin: 09/18/17 09:14 Dose: 40 mg Famotidine (Pepcid) 20 mg PO DAILY [facility] Last Admin: 09/18/17 09:14 Dose: 20 mg Piperacillin Sod/Tazobactam Sod (Zosyn 4.5 Gm In Ns 100ml) 4.5 gm in 100 mls @ 200 mls/hr IVPB Q6 [facility] PRN Reason: Protocol Stop: 09/22/17 00:01 Last Admin: 09/18/17 11:57 Dose: 200 mls/hr Ibuprofen (Motrin Tab) 400 mg PO Q6H PRN PRN Reason: Pain, moderate (4-7) Last Admin: 09/17/17 14:13 Dose: 400 mg Insulin Human Regular (Humulin R Med) 0 units SC ACHS [facility] PRN Reason: Protocol Last Admin: 09/18/17 12:00 Dose: 3 unit Lactobacillus Acidophilus (Bacid Acidophilus) 1 cap PO BID [facility] Last Admin: 09/18/17 09:14 Dose: 1 cap Metformin HCl (Glucophage) 1,000 mg PO BID [facility] Last Admin: 09/18/17 09:14 Dose: 1,000 mg Nicotine (Nicoderm Cq) 1 patch TD DAILY [facility] Last Admin: 09/18/17 09:14 Dose: 1 patch Non-Formulary Medication (Alogliptin Benzoate [Alogliptin]) 25 mg PO DAILY [facility] Last Admin: 09/18/17 09:14 Dose: Not Given Ondansetron HCl (Zofran Inj) 4 mg IVP Q6 PRN PRN Reason: Nausea/Vomiting - Labs Labs: 09/18/17 07:00 09/18/17 07:00 PT 12.0 SECONDS (9.4-12.5) 09/14/17 14:45 INR 1.05 (0.93-1.08) 09/14/17 14:45 APTT 27.8 Seconds (25.1-36.5) 09/14/17 14:45 Attending/Attestation - Attestation I have personally seen and examined this patient.: Yes I have fully participated in the care of the patient.: Yes I have reviewed all pertinent clinical information, including history, physical exam and plan: Yes Notes (Text): 09/18/17 13:49 57 year old female with past medical history of diabetes who presented with left foot 1st digit abscess. She is s/p I&D. Foot xray and MRI were negative for osteomyelitis. LE ultrasound was reviewed as above. Vascular evaluation was requested. Will follow up with recommendations. Continue with iv antibiotics as per ID. Continue with wound care as per podiatry. Wound culture is growing coag negative staph. Spenser Clay MD Hospitalist.
[2017-09-19] MEDS: Piperacill/Tazo 4.5gm in NS 4.5 GM/100 ML BAG IVPB SCH ×2 (05:08→11:27)
[2017-09-19 07:18] LABS: BASO # 0.03 K/mm3 (0.0-2.0); BASO % 0.3 % (0.0-3.0); EOS # 0.2 (0.0-0.7); GRAN # 6.03 (1.4-6.5); GRAN % 68.1 % (50.0-68.0); HEMOGLOBIN 12.7 g/dL (12.0-16.0); LYMPH # 1.8 (1.2-3.4); LYMPH % 20.4 % (22.0-35.0); MEAN CELL VOLUME 86.9 fl (80.0-105.0); MEAN CORPUSCULAR HEMOGLOBIN 29.6 pg (25.0-35.0); MEAN PLATELET VOLUME 9.3 fl (7.0-11.0); MONO # 0.8 (0.1-0.6); MONO % 9.2 % (1.0-6.0); RBC 4.29 10^6/uL (3.5-6.1); RED CELL DISTRIBUTION WIDTH 12.6 % (11.5-14.5); WHITE BLOOD COUNT 8.9 10^3/ul (4.5-11.0)
[2017-09-19 07:32] LABS: ALB/GLOB RATIO 1.3 (1.1-1.8); ALBUMIN 3.8 g/dL (3.0-4.8); ALT/SGPT 72 U/L (7-56); AST/SGOT 60 U/L (14-36); BLOOD UREA NITROGEN 8 mg/dL (7-21); GFR AFRICAN-AMERICAN > 60; GFR NON-AFRICAN AMERICAN > 60
--- NOTE | 2017-09-19 07:39 | PN ---
DATE: 09/18/2017 SUBJECTIVE: Patient is in bed, in no acute distress, nontoxic. PHYSICAL EXAMINATION: VITAL SIGNS: Temperature is 97, blood pressure is 140/80, respiratory rate of 20. HEENT: Unremarkable. NECK: Supple. LUNGS: Have decreased breath sounds. HEART: Normal S1 and S2. ABDOMEN: Soft and nontender. LABORATORY EXAMINATION: Reveals a white count of 6.3, hemoglobin of 13, platelets of 365. Chemistries reveal a BUN of 14, creatinine of 0.8. Serology is noted, negative HIV, negative influenza. Microbiology reveals left foot coag-negative Staph. The blood cultures have no growth. Stool for C. diff is negative antigen and negative toxin. ASSESSMENT AND PLAN: This is a 57 years old with big toe cellulitis on vancomycin and Zosyn. Vancomycin had been dropped. Has got a coagulase-negative Staphylococcus, we will restart vancomycin. We will check on the culture results. The review of the chemistries reveals a creatinine of 0.8. Jesus Moss MD
[2017-09-19 08:44] VITALS: RESP 20
--- NOTE | 2017-09-19 09:51 | CP.PCM.PN ---
Subjective - Date & Time of Evaluation Date of Evaluation: 09/19/17 Time of Evaluation: 09:48 - Subjective Subjective: Podiatry Progress Note- Dr. Carter/Dr. Gómez 57 year old diabetic female seen at bedside today for f/u L infected hallux ulceration. Pt is 4 days s/p bedside I&D. Pt denies any pain to the foot today. Denies any acute overnight events. Reports she slept well yesterday. Reports that the redness is starting to go down a little. Denies f/n/v/c/sob/cp at this time. Offers no further complaints. Objective - Vital Signs/Intake and Output Vital Signs (last 24 hours): Temp Pulse Resp BP Pulse Ox 97.9 F 68 20 148/80 98 09/19/17 06:00 09/19/17 06:00 09/19/17 06:00 09/19/17 06:00 09/19/17 06:00 Intake and Output: 09/19/17 09/19/17 06:59 18:59 Intake Total 600 Balance 600 - Medications Medications: Current Medications Acetaminophen (Tylenol 325mg Tab) 650 mg PO Q6H PRN PRN Reason: Headache Last Admin: 09/15/17 10:07 Dose: 650 mg Cadexomer Iodine (Iodosorb) 0 gm TOP DAILY [facility] Last Admin: 09/18/17 09:18 Dose: 10 gm Enoxaparin Sodium (Lovenox) 40 mg SC DAILY MAURICIO PRN Reason: Protocol Last Admin: 09/18/17 09:14 Dose: 40 mg Famotidine (Pepcid) 20 mg PO DAILY [facility] Last Admin: 09/18/17 09:14 Dose: 20 mg Piperacillin Sod/Tazobactam Sod (Zosyn 4.5 Gm In Ns 100ml) 4.5 gm in 100 mls @ 200 mls/hr IVPB Q6 MAURICIO PRN Reason: Protocol Stop: 09/22/17 00:01 Last Admin: 09/19/17 05:08 Dose: 200 mls/hr Vancomycin HCl (Vancomycin 1gm) 1 gm in 250 mls @ 167 mls/hr IVPB Q12H MAURICIO PRN Reason: Protocol Stop: 09/27/17 22:31 Last Admin: 09/18/17 23:31 Dose: 167 mls/hr Ibuprofen (Motrin Tab) 400 mg PO Q6H PRN PRN Reason: Pain, moderate (4-7) Last Admin: 09/17/17 14:13 Dose: 400 mg Insulin Human Regular (Humulin R Med) 0 units SC ACHS [facility] PRN Reason: Protocol Last Admin: 09/18/17 22:16 Dose: Not Given Lactobacillus Acidophilus (Bacid Acidophilus) 1 cap PO BID [facility] Last Admin: 09/18/17 17:53 Dose: 1 cap Metformin HCl (Glucophage) 1,000 mg PO BID [facility] Last Admin: 09/18/17 17:53 Dose: 1,000 mg Nicotine (Nicoderm Cq) 1 patch TD DAILY [facility] Last Admin: 09/18/17 09:14 Dose: 1 patch Non-Formulary Medication (Alogliptin Benzoate [Alogliptin]) 25 mg PO DAILY [facility] Last Admin: 09/18/17 09:14 Dose: Not Given Ondansetron HCl (Zofran Inj) 4 mg IVP Q6 PRN PRN Reason: Nausea/Vomiting - Labs Labs: 09/19/17 07:03 09/19/17 07:03 PT 12.0 SECONDS (9.4-12.5) 09/14/17 14:45 INR 1.05 (0.93-1.08) 09/14/17 14:45 APTT 27.8 Seconds (25.1-36.5) 09/14/17 14:45 - Constitutional Appears: Well, Non-toxic, No Acute Distress - Extremities Exam Additional comments: L foot focused: VASC- DP/PT pulses are faintly palpable, skin temp runs warm to warm with increased calor to L hallux, moderate edema noted to hallux, cap refill is wnl x 9 digits but delayed to L hallux secondary to venous congestiona NEURO- gross and protective pedal sensation are diminished DERM- fulll thickness ulceration is noted to plantar aspect of L hallux measures approximately 1.5x1.5x0.4cm, neg probe to bone, malodor absent, there is fibronecrotic tissue noted to central wound bed with mixed granulation tissue , minimal serous drainage, neg purulence, neg fluctuance, neg ascending cellulitis, erythema localized to the hallux appears to be decreasing MSK- pt able to wiggle all toes freely, neg tenderness to L hallux, no gross deformities appreciated - Neurological Exam Neurological Exam: Alert, Awake, Oriented x3 - Psychiatric Exam Psychiatric exam: Normal Affect, Normal Mood Assessment and Plan - Assessment and Plan (Free Text) Assessment: 57 year old female patient with infected ulceration of L hallux 2/2 diabetic neuropathy Plan: Pt S&E at bedside with Dr. Carter Afebrile, neg leuocytosis, ESR is elevated at 55 on previous labs Wound cx results: coag neg Staph L foot MRI: no evidence of OM Abx as per ID Vascular consulted Wound cleansed with saline and dressed with iodosorb, adaptic, DSD Discontinue iodosorb - order santyl Forefoot offloading shoe - educated proper ambulation in the shoe Patient is stable from podiatry standpoint; upon follow up with Dr. Carter/Dr. Gómez Podiatry will follow while in-house
[2017-09-19] MEDS: Lactobacillus Acidophilus 500 MU Cap PO SCH (09:57)
[2017-09-19] MEDS: Enoxaparin 40 mg Syringe SC SCH (09:57)
[2017-09-19] MEDS: Vancomycin 1gm in NS 250ml 1 GM/250 ML BAG IVPB SCH (09:58)
[2017-09-19] MEDS ORDERED: Collagenase 250 Units/gm Ointment(30 gm) TOP SCH (10:00)
[2017-09-19] MEDS: CADEXOMER IODINE 0.9% GEL 10G TOP SCH (10:01)
[2017-09-19] MEDS: Non Formulary Medication (Alogliptin Benzoate [Alogliptin] 25 MG) PO SCH (10:03)
[2017-09-19] MEDS: Insulin Reg-MEDIUM-Coverage SC SCH ×2 (10:03→11:31)
--- NOTE | 2017-09-19 13:28 | CP.PCM.DIS ---
<Griselda Verdin - Last Filed: 09/19/17 14:57> Provider - Provider Date of Admission: 09/14/17 16:26 Attending physician: Azalea Valenzuela MD Primary care physician: Zoila Martin DO Consults: Podiatry Emma Moss Time Spent in preparation of Discharge (in minutes): 60 Diagnosis - Discharge Diagnosis (1) Cellulitis of foot, left Status: Acute (2) Toe abscess Status: Acute (3) Uncontrolled diabetes mellitus Status: Acute Hospital Course - Lab Results Lab Results: Micro Results 09/15/17 09:40 Foot - Left Gram Stain - Final 09/15/17 09:40 Foot - Left Wound Culture - Final Coagulase Neg Staphylococcus 09/17/17 09:35 Stool C. difficile Antigen & Toxin A,B (M - Final Most Recent Lab Values WBC 8.9 10^3/ul (4.5-11.0) D 09/19/17 07:03 RBC 4.29 10^6/uL (3.5-6.1) 09/19/17 07:03 Hgb 12.7 g/dL (12.0-16.0) 09/19/17 07:03 Hct 37.3 % (36.0-48.0) 09/19/17 07:03 MCV 86.9 fl (80.0-105.0) 09/19/17 07:03 MCH 29.6 pg (25.0-35.0) 09/19/17 07:03 MCHC 34.0 g/dl (31.0-37.0) 09/19/17 07:03 RDW 12.6 % (11.5-14.5) 09/19/17 07:03 Plt Count 355 10^3/uL (120.0-450.0) 09/19/17 07:03 MPV 9.3 fl (7.0-11.0) 09/19/17 07:03 Gran % 68.1 % (50.0-68.0) H 09/19/17 07:03 Lymph % (Auto) 20.4 % (22.0-35.0) L 09/19/17 07:03 [place] % (Auto) 9.2 % (1.0-6.0) H 09/19/17 07:03 Eos % (Auto) 2.0 % (1.5-5.0) 09/19/17 07:03 Baso % (Auto) 0.3 % (0.0-3.0) 09/19/17 07:03 Gran # 6.03 (1.4-6.5) 09/19/17 07:03 Lymph # (Auto) 1.8 (1.2-3.4) 09/19/17 07:03 [place] # (Auto) 0.8 (0.1-0.6) H 09/19/17 07:03 Eos # (Auto) 0.2 (0.0-0.7) 09/19/17 07:03 Baso # (Auto) 0.03 K/mm3 (0.0-2.0) 09/19/17 07:03 ESR 55 mm/hr (0.0-20.0) H 09/15/17 06:30 PT 12.0 SECONDS (9.4-12.5) 09/14/17 14:45 INR 1.05 (0.93-1.08) 09/14/17 14:45 APTT 27.8 Seconds (25.1-36.5) 09/14/17 14:45 pO2 19 mm/Hg (30-55) L 09/14/17 15:15 VBG pH 7.37 (7.32-7.43) 09/14/17 15:15 VBG pCO2 52.0 (40-60) 09/14/17 15:15 VBG HCO3 30.1 mmol/l (21-28) H 09/14/17 15:15 VBG Total CO2 31.7 mmol.L (22-28) H 09/14/17 15:15 VBG O2 Sat (Calc) 33.1 % (40-65) L 09/14/17 15:15 VBG Base Excess 3.6 mmol/L (0.0-2.0) H 09/14/17 15:15 VBG Potassium 4.0 mmol/L (3.6-5.2) 09/14/17 15:15 Sodium 136.0 mmol/L (132-148) 09/14/17 15:15 Chloride 101.0 mmol/L (98-107) 09/14/17 15:15 Glucose 214 mg/dl (65-105) H 09/14/17 15:15 Lactate 1.2 mmol/L (0.7-2.1) 09/14/17 15:15 FiO2 21.0 % 09/14/17 15:15 Sodium 142 mmol/L (132-148) 09/19/17 07:03 Potassium 4.3 mmol/L (3.6-5.0) 09/19/17 07:03 Chloride 105 mmol/L (98-107) 09/19/17 07:03 Carbon Dioxide 28 mmol/L (21-33) 09/19/17 07:03 Anion Gap 13 (10-20) 09/19/17 07:03 BUN 8 mg/dL (7-21) 09/19/17 07:03 Creatinine 0.8 mg/dl (0.7-1.2) 09/19/17 07:03 Est GFR ( Amer) > 60 09/19/17 07:03 Est GFR (Non-Af Amer) > 60 09/19/17 07:03 POC Glucose (mg/dL) 188 mg/dL (65-110) H 09/19/17 10:58 Random Glucose 179 mg/dL (70-110) H 09/19/17 07:03 Hemoglobin A1c 8.3 % (4.2-6.5) H 09/15/17 11:00 Serum Osmolality 286 mosm/kg (272-300) 09/14/17 14:45 Calcium 9.0 mg/dL (8.4-10.5) 09/19/17 07:03 Phosphorus 3.6 mg/dL (2.5-4.5) 09/14/17 14:45 Magnesium 1.5 mg/dL (1.7-2.2) L 09/14/17 14:45 Total Bilirubin 0.4 mg/dL (0.2-1.3) 09/19/17 07:03 AST 60 U/L (14-36) H D 09/19/17 07:03 ALT 72 U/L (7-56) H 09/19/17 07:03 Alkaline Phosphatase 117 U/L (38-126) 09/19/17 07:03 Troponin I < 0.01 ng/mL 09/14/17 14:45 C-Reactive Protein 133.30 mg/L (0.0-9.9) H 09/15/17 06:30 C-React Prot High Sens > 15.00 mg/L (1.00-3.00) H 09/14/17 14:45 Total Protein 6.7 g/dL (5.8-8.3) 09/19/17 07:03 Albumin 3.8 g/dL (3.0-4.8) 09/19/17 07:03 Globulin 2.9 gm/dL 09/19/17 07:03 Albumin/Globulin Ratio 1.3 (1.1-1.8) 09/19/17 07:03 Triglycerides 165 mg/dL (35-160) H 09/15/17 06:30 Cholesterol 182 mg/dL (130-200) 09/15/17 06:30 LDL Cholesterol Direct 90 mg/dL (0-129) 09/15/17 06:30 HDL Cholesterol 45 mg/dL (29-60) 09/15/17 06:30 Procalcitonin 0.30 NG/ML (0.19-0.49) 09/14/17 14:45 Venous Blood Potassium 4.0 mmol/L (3.6-5.2) 09/14/17 15:15 HIV 1&2 Ag/Ab, 4th Gen Nonreactive (Nonreactive) 09/15/17 11:00 Influenza Typ A,B (EIA) Negative for flu a/b (NEGATIVE) 09/14/17 19:00 - Hospital Course Hospital Course: 57 year old female with PMH DM, presents to the emergency department complaining of toe swelling of the right great toe. Patient states that 2 days ago she noticed her toe swelling and becoming tender. Patient states that she has a history of diabetic ulcers to same region and has had an ulcer there for the past 3-4 months. She has previously seen a grocery bagger for the ulcer but has not seen any one for the past few months. She states that she was not on any antibiotic recently. She noted left great toe redness,swelling with severe pain with movement left foot and toe. Pt was admitted for rigth 1st digit abscess, drained by podiatry, foot MRI negative for osteomyelitis, wound culture showed light growth of coagulase negative staph. Pt received IV doses of broad spectrum antibiotics in hospital. Pt is discharged home with Keflex and Doxycycline, as per ID. Patient ambulating well with waffle boot. Patient will follow up with PMD Dr Martin and podiatry Dr Carter upon discharge. Case seen and discussed with Dr Clay. Griselda Verdin, PGY1 Discharge Exam - Head Exam Head Exam: NORMAL INSPECTION - Additional Findings Additional findings: - Constitutional Appears: Non-toxic, No Acute Distress - Head Exam Head Exam: ATRAUMATIC, NORMOCEPHALIC - Eye Exam Eye Exam: EOMI, PERRL. absent: Conjunctival injection, Nystagmus, Scleral icterus Pupil Exam: NORMAL ACCOMODATION, PERRL. absent: Fixed, Irregular, Miosis, Unequal - ENT Exam ENT Exam: Mucous Membranes Moist - Neck Exam Neck Exam: Full ROM - Respiratory Exam Respiratory Exam: Clear to Ausculation Bilateral, NORMAL BREATHING PATTERN. absent: Accessory Muscle Use, Rales, Rhonchi, Wheezes, Respiratory Distress, Stridor - Cardiovascular Exam Cardiovascular Exam: +S1, +S2. absent: Murmur - GI/Abdominal Exam GI & Abdominal Exam: Soft, Normal Bowel Sounds. absent: Distended, Firm, Guarding, Rigid, Tenderness, Mass, Organomegaly, Rebound - Extremities Exam Additional comments: + left foot covered in dressing, clean, dry, intact. No odor noted. - Back Exam Back Exam: NORMAL INSPECTION - Neurological Exam Neurological Exam: Alert, Awake, Oriented x3 - Psychiatric Exam Psychiatric exam: Normal Affect, Normal Mood - Skin Skin Exam: Dry, Normal Color, Warm Discharge Plan - Discharge Medications Prescriptions: Cephalexin [Keflex] 500 mg PO Q12 7 Days capsule Collagenase [Santyl] 1 gm TOP DAILY #1 tube Doxycycline Hyclate 100 mg PO DAILY #7 capsule - Follow Up Plan Condition: STABLE Disposition: HOME/ ROUTINE Patient education suggested?: Yes Instructions: Heart Healthy Diet, Wound Care, Preventing Falls, Cellulitis ( Skin Infection), Adult (DC), Diabetes and Diet Additional Instructions: - Take Keflex and Doxycycline for 7 days. - Follow up with Dr Vargas in 1 week. - Follow up with podiatry, Dr Carter/Rico in 1 week. - Return to ER for any concerns. Referrals: Zoila Martin DO [Primary Care Provider] - <Spenser Clay - Last Filed: 09/19/17 16:28> Provider - Provider Date of Admission: 09/14/17 16:26 Attending physician: Azalea Valenzuela MD Primary care physician: Zoila Martin [facility] Course - Lab Results Lab Results: Micro Results 09/15/17 09:40 Foot - Left Gram Stain - Final 09/15/17 09:40 Foot - Left Wound Culture - Final Coagulase Neg Staphylococcus 09/17/17 09:35 Stool C. difficile Antigen & Toxin A,B (M - Final Most Recent Lab Values WBC 8.9 10^3/ul (4.5-11.0) D 09/19/17 07:03 RBC 4.29 10^6/uL (3.5-6.1) 09/19/17 07:03 Hgb 12.7 g/dL (12.0-16.0) 09/19/17 07:03 Hct 37.3 % (36.0-48.0) 09/19/17 07:03 MCV 86.9 fl (80.0-105.0) 09/19/17 07:03 MCH 29.6 pg (25.0-35.0) 09/19/17 07:03 MCHC 34.0 g/dl (31.0-37.0) 09/19/17 07:03 RDW 12.6 % (11.5-14.5) 09/19/17 07:03 Plt Count 355 10^3/uL (120.0-450.0) 09/19/17 07:03 MPV 9.3 fl (7.0-11.0) 09/19/17 07:03 Gran % 68.1 % (50.0-68.0) H 09/19/17 07:03 Lymph % (Auto) 20.4 % (22.0-35.0) L 09/19/17 07:03 [place] % (Auto) 9.2 % (1.0-6.0) H 09/19/17 07:03 Eos % (Auto) 2.0 % (1.5-5.0) 09/19/17 07:03 Baso % (Auto) 0.3 % (0.0-3.0) 09/19/17 07:03 Gran # 6.03 (1.4-6.5) 09/19/17 07:03 Lymph # (Auto) 1.8 (1.2-3.4) 09/19/17 07:03 [place] # (Auto) 0.8 (0.1-0.6) H 09/19/17 07:03 Eos # (Auto) 0.2 (0.0-0.7) 09/19/17 07:03 Baso # (Auto) 0.03 K/mm3 (0.0-2.0) 09/19/17 07:03 ESR 55 mm/hr (0.0-20.0) H 09/15/17 06:30 PT 12.0 SECONDS (9.4-12.5) 09/14/17 14:45 INR 1.05 (0.93-1.08) 09/14/17 14:45 APTT 27.8 Seconds (25.1-36.5) 09/14/17 14:45 pO2 19 mm/Hg (30-55) L 09/14/17 15:15 VBG pH 7.37 (7.32-7.43) 09/14/17 15:15 VBG pCO2 52.0 (40-60) 09/14/17 15:15 VBG HCO3 30.1 mmol/l (21-28) H 09/14/17 15:15 VBG Total CO2 31.7 mmol.L (22-28) H 09/14/17 15:15 VBG O2 Sat (Calc) 33.1 % (40-65) L 09/14/17 15:15 VBG Base Excess 3.6 mmol/L (0.0-2.0) H 09/14/17 15:15 VBG Potassium 4.0 mmol/L (3.6-5.2) 09/14/17 15:15 Sodium 136.0 mmol/L (132-148) 09/14/17 15:15 Chloride 101.0 mmol/L (98-107) 09/14/17 15:15 Glucose 214 mg/dl (65-105) H 09/14/17 15:15 Lactate 1.2 mmol/L (0.7-2.1) 09/14/17 15:15 FiO2 21.0 % 09/14/17 15:15 Sodium 142 mmol/L (132-148) 09/19/17 07:03 Potassium 4.3 mmol/L (3.6-5.0) 09/19/17 07:03 Chloride 105 mmol/L (98-107) 09/19/17 07:03 Carbon Dioxide 28 mmol/L (21-33) 09/19/17 07:03 Anion Gap 13 (10-20) 09/19/17 07:03 BUN 8 mg/dL (7-21) 09/19/17 07:03 Creatinine 0.8 mg/dl (0.7-1.2) 09/19/17 07:03 Est GFR ( Amer) > 60 09/19/17 07:03 Est GFR (Non-Af Amer) > 60 09/19/17 07:03 POC Glucose (mg/dL) 188 mg/dL (65-110) H 09/19/17 10:58 Random Glucose 179 mg/dL (70-110) H 09/19/17 07:03 Hemoglobin A1c 8.3 % (4.2-6.5) H 09/15/17 11:00 Serum Osmolality 286 mosm/kg (272-300) 09/14/17 14:45 Calcium 9.0 mg/dL (8.4-10.5) 09/19/17 07:03 Phosphorus 3.6 mg/dL (2.5-4.5) 09/14/17 14:45 Magnesium 1.5 mg/dL (1.7-2.2) L 09/14/17 14:45 Total Bilirubin 0.4 mg/dL (0.2-1.3) 09/19/17 07:03 AST 60 U/L (14-36) H D 09/19/17 07:03 ALT 72 U/L (7-56) H 09/19/17 07:03 Alkaline Phosphatase 117 U/L (38-126) 09/19/17 07:03 Troponin I < 0.01 ng/mL 09/14/17 14:45 C-Reactive Protein 133.30 mg/L (0.0-9.9) H 09/15/17 06:30 C-React Prot High Sens > 15.00 mg/L (1.00-3.00) H 09/14/17 14:45 Total Protein 6.7 g/dL (5.8-8.3) 09/19/17 07:03 Albumin 3.8 g/dL (3.0-4.8) 09/19/17 07:03 Globulin 2.9 gm/dL 09/19/17 07:03 Albumin/Globulin Ratio 1.3 (1.1-1.8) 09/19/17 07:03 Triglycerides 165 mg/dL (35-160) H 09/15/17 06:30 Cholesterol 182 mg/dL (130-200) 09/15/17 06:30 LDL Cholesterol Direct 90 mg/dL (0-129) 09/15/17 06:30 HDL Cholesterol 45 mg/dL (29-60) 09/15/17 06:30 Procalcitonin 0.30 NG/ML (0.19-0.49) 09/14/17 14:45 Venous Blood Potassium 4.0 mmol/L (3.6-5.2) 09/14/17 15:15 HIV 1&2 Ag/Ab, 4th Gen Nonreactive (Nonreactive) 09/15/17 11:00 Influenza Typ A,B (EIA) Negative for flu a/b (NEGATIVE) 09/14/17 19:00 Attending/Attestation - Attestation I have personally seen and examined this patient.: Yes I have fully participated in the care of the patient.: Yes I have reviewed all pertinent clinical information, including history, physical exam and plan: Yes Notes (Text): 09/19/17 16:26 57 year old female with past medical history of diabetes who presented with left foot 1st digit abscess. She was seen by ID and is s/p I&D. Foot xray and MRI were negative for osteomyelitis. Her symptoms improved with iv antibiotics which will be switched to po. Patient is discharged home to follow up with pmd and podiatry. Continue with po antibiotics as prescribed. Spenser Clay MD Hospitalist.
[2017-09-19 15:04] VITALS: BP 119/78; PULSE 72; TEMP 98.2; O2SAT 96
--- NOTE | 2017-09-19 20:05 | PN ---
DATE: 09/19/2017 SUBJECTIVE: The patient in bed, in no acute distress, nontoxic. PHYSICAL EXAMINATION: VITAL SIGNS: Temperature is 98, blood pressure is 140/80, respiratory rate 16, heart rate is 70. HEENT: Unremarkable. NECK: Supple. LUNGS: Have decreased breath sounds. HEART: Normal S1 and S2. ABDOMEN: Soft, nontender. No organomegaly, no rebound, no guarding. LABORATORY DATA: Reveals the patient's white count is 8.9, hemoglobin 12. Chemistries are noted, normal creatinine. Serology is noted. HIV is negative. Influenza is negative. Microbiology is noted, coag-negative staph and blood cultures are no growth. Left foot culture is coag-negative staph in light growth. Stool for C. diff antigen and toxin are both negative. ASSESSMENT AND PLAN: A 57-year-old female seen early this morning at in 575, bed 2, with big toe cellulitis, on vancomycin and Zosyn with coagulase-negative. MRI is negative for osteomyelitis. Podiatry wanted to discharge the patient. The patient's foot according to Podiatry is doing well and Dr. Griselda Verdin is called regarding discharge status post incision and drainage of the foot. The patient to be discharged on p.o. antibiotic with Keflex and doxycycline as discussed with Dr. Verdin. Follow up with Podiatry and PMD as outpatient. Jesus Moss MD
== END 2017-09-19 17:22 | disposition home or self-care (01) | DRG 294 ==
LOC: ED 13:25 → ERH 16:26 → 5RSO 17:35
PROVIDERS: ADMIT Internal Medicine; ATTEND Internal Medicine
DX: E10.621 Type 1 diabetes mellitus with foot ulcer (principal); L97.529 Non-pressure chronic ulcer of other part of left foot with unspecified severity; L03.116 Cellulitis of left lower limb; L02.612 Cutaneous abscess of left foot; L03.032 Cellulitis of left toe; E10.42 Type 1 diabetes mellitus with diabetic polyneuropathy; F17.210 Nicotine dependence, cigarettes, uncomplicated